=== PATIENT | female | born 1955 | race African-American/Black ===

== ENCOUNTER 2019-04-06 09:13 | Day surgery (SDC) | payer OTHER ==
--- OUTSIDE RECORDS SUMMARY | 2019-04-06 08:07 | XMS REPORT ---
:1955 [facility] Address [address] [place] [address] Dr. Robles. [address] [place] [address] Care Team Providers Name Role Phone Unavailable Unavailable Unavailable Problems This patient has no known problems. Allergies, Adverse Reactions, Alerts This patient has no known allergies or adverse reactions. Medications This patient has no known medications.
[2019-04-06 09:21] LABS: Absolute Lymphocytes (CBC) 1.1 K/uL (0.7-4.9); Absolute Monocytes 0.4 K/uL (0.1-1.3); Absolute Neutrophil 2.7 K/uL (1.8-8.0); Basophils % 0.8 % (0-1.3); Eosinophils % 1.5 % (0-4.4); Hematocrit 36.5 % (36.0-45.0); Lymphocytes % 26.3 % (15.3-44.8); MPV 8.1 fL (7.6-11.3); Monocytes % 9.3 % (3.3-12.3); RBC Red Blood Cell Count 4.24 M/uL (3.86-4.86)
--- NOTE | 2019-04-06 09:28 | RAD REPORT ---
EXAM DESCRIPTION: Ephraim Skaggs And Lana (2 Views)04/06/2019 9:15 am CLINICAL HISTORY: Breast abscess. Preop COMPARISON: None FINDINGS: The lungs appear clear of acute infiltrate. The heart is normal size Aorta is tortuous/ectatic IMPRESSION: No acute abnormalities displayed
[2019-04-06] MEDS ORDERED: Ringers Lactate 1,000 ML IV ONE (09:34)
[2019-04-06] MEDS ORDERED: CEFAZOLIN/SWI 1gm 1 GM/10 ML SYR ONE (09:34)
--- OUTSIDE RECORDS SUMMARY | 2019-04-06 09:34 | XMS REPORT ---
:1955 [facility] Address [address] [place] [address] Dr. Robles. [address] [place] [address] Care Team Providers Name Role Phone Unavailable Unavailable Unavailable Problems This patient has no known problems. Allergies, Adverse Reactions, Alerts This patient has no known allergies or adverse reactions. Medications This patient has no known medications.
[2019-04-06 09:40] LABS: Potassium 3.7 mmol/L (3.5-5.1)
[2019-04-06] MEDS ORDERED: FENTANYL CITR 100 MCG/2 ML ONE ×3 (10:15→11:21)
[2019-04-06] MEDS ORDERED: PROPOFOL 200 MG/20 ML VIAL IV ONE ×3 (10:16→11:21)
[2019-04-06] MEDS ORDERED: MIDAZOLAM HCL 2 MG/2 ML INJ ONE ×3 (10:16→11:21)
[2019-04-06] MEDS ORDERED: LIDOCAINE 1% MPF 2 ML AMPULE ONE (10:17)
[2019-04-06] MEDS: BUPIVACAINE 0.5% PF 10 ML VIAL ONE ×3 (10:25→11:37)
[2019-04-06] MEDS ORDERED: LIDOCAINE 2% MPF 5 ML VIAL ONE (11:08)
[2019-04-06] MEDS ORDERED: LIDOCAINE 1% MPF 5 ML VIAL ONE (11:21)
[2019-04-06] MEDS ORDERED: KETOROLAC 30 MG/ML INJ ONE (11:51)
[2019-04-06] MEDS ORDERED: ONDANSETRON 4 MG/2 ML VIAL ONE (11:52)
[2019-04-06] MEDS ORDERED: HYDROMORPHONE HCL 1 MG/ML INJ ONE (12:30)
--- NOTE | 2019-04-06 12:45 | EKG ---
Test Date: 2019-04-06 Test Time: 08:54:38 Windscreen Fitter: DANYEL MEASUREMENT RESULTS: Intervals: Rate: 56 UT: 166 QRSD: 92 QT: 406 QTc: 391 [place]: P: 44 UT: 166 QRS: 0 T: 36 INTERPRETIVE STATEMENTS: Sinus bradycardia Moderate voltage criteria for LVH, may be normal variant Borderline ECG Compared to ECG 05/20/2002 20:29:00 Left ventricular hypertrophy now present Sinus rhythm no longer present Atrial premature complex(es) no longer present Electronically Signed On 04-06-19 12:44:00 CDT by Fuentes Murcia
--- NOTE | 2019-04-07 00:32 | OP ---
Date of Procedure: 04/06/2019 Surgeon: Johnny Pringle MD Preoperative Diagnosis: Infected cyst, chest wall. Postoperative Diagnosis: Infected cyst, chest wall. Procedure: Excisional debridement of chest wall infected cyst, 4 x 6 cm to subcutaneous tissue. Estimated Blood Loss: Minimal. Specimen: Pus and cyst. Findings: As above. Anesthesia: General. Complications: None. Disposition: The patient tolerated the procedure in stable condition, taken to recovery in good gene ral condition. Procedure In Detail: The patient was brought to the OR and placed in supine position. General anest hesia was begun. The patient was prepped and draped in usual sterile fashion. The patient had an ab scess with infected cyst of the chest wall. It was injected with Marcaine 0.5%. A 15-blade was used to make approximately a 6 x 4 cm incision to excise this infected cyst that had multiple holes in th e skin. Minimal oozing was noted and this was done all the way down to the subcutaneous tissue. The entire wound was irrigated and bleeding was controlled with cautery. Wet-to-dry normal saline dress ing change was applied. The patient tolerated the procedure in stable condition, taken to recovery i n good general condition. Discharge Note: The patient will go to day surgery and home when stable. Disposition: Home. Condition: Stable. Discharge Instructions: Resume home medications and diet. Activity as tolerated. Wet-to-dry normal saline dressings daily. Keflex 500 mg p.o. q.6. Follow up in my office in 1 week. Call for appoin tment. Tylenol No. 3 one table p.o. q.4 p.r.n. /CARLITOL Voice ID: [id number] Report ID: [id number]
== END 2019-04-06 13:34 | disposition home or self-care (01) ==
LOC: OR 09:13
PROVIDERS: ATTEND Surgery
PROC: 0JB60ZZ Excision of Chest Subcutaneous Tissue and Fascia, Open Approach (ICD-10-PCS; principal; 2019-04-06 10:00)
DX: L02.213 Cutaneous abscess of chest wall (principal); L03.313 Cellulitis of chest wall; I10 Essential (primary) hypertension; Z79.899 Other long term (current) drug therapy
CPT/HCPCS: 36415; 71046; 80048; 85025; 87070; 87075; 87205; 88304; 88305; 93005; J0690; J1170; J2001; J2250; J2405; J2704; J3010

== ENCOUNTER 2024-09-30 00:57 | Observation (INO) | payer OTHER, MEDICARE ==
--- OUTSIDE RECORDS SUMMARY | 2024-09-30 01:01 | XMS REPORT | Continuity of Care Document ---
Author Name Unknown Address [address] [place] [address] [facility] thconnect Address [address] [place] [address] Care Team Providers Care Aerospace Project Engineer Name Role Phone [phone] Primary Care Physician UnavailADRIANA Cabrera Attending Clinician UnavailWERO Sarabia Attending Clinician Un available ERICK BURNS Attending Clinician Unavailable TIM FONTANEZ Attending Clinician UnavailYURI Hutton Attending Clinician UnavailLEXY Addison Attending Clinician Unavailable Eren Attending Clinician Unavail able Antony GUTIERRES, Sendil K.H. Attending Clinician + [phone] NATHAN GALAN Attending Clinician UnavailMARK Cormier Attending Clinician Unavailable Doctor Unassigned, [place] Attending Clinician U marek ALFARO, SENDELVIRA K.HAmy Attending Clinician UnavailRadames Wilson Attending Clinician UnavailCOLLIN Naik Attending Clinician Unavailable Jaycob Lugo DO Attending Clinician JEANIE AKIEN Attending Clinician UnavailADRIANA Mccloud Admitting Clinician UnavailYURI Clarke Admitting Clinician Unavailpearl Jason Admitting Clinician Unavail able Radames Thornton Admitting Clinician Unavailabl e Christiano Palmer Admitting Clinician Unavailable Payers Payer Name Policy Type Policy Number Effective Date Expirati on Date Source AET[employer] HMO [id number] 2002 00:00:00 MEDICARE PART A AND B [id number] 2022 00:00:00 AARP-SECONDARY ONLY [id number] 2022 00:00:00 AETNA - CHOICE (POS II) [id number] 2016 00:00:00 Problems Condition Name Condition Details Condition Category Status Onset Date Resolution Date Last Treatment Date Treating Clinician Comments Source Lumbar radiculopa thy Lumbar Radiculopa thy Problem Active 2021-11 00:00: 00 [facility] Pain of left knee joint Pain of Left Knee Joint Problem Active 2021-11 00:00: 00 [facility] 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 Problem Active 11-25 00:00: 00 [facility] Implantati on of joint prosthesis Implantati on of Joint Prosthesis Problem Active 11-25 00:00: 00 [facility] Full thickness rotator cuff tear Full Thickness Rotator Cuff Tear Problem Active 07-19 00:00: 00 [facility] Osteoarthr itis of knee Osteoarthr itis of Knee Problem Active 07-05 00:00: 00 [facility] Biceps tendinitis Biceps Tendinitis Problem Active 07-05 00:00: 00 [facility] Inflammati on of rotator cuff tendon Inflammati on of Rotator Cuff Tendon Problem Active 07-05 00:00: 00 [facility] Impingemen t syndrome of shoulder region Impingemen t Syndrome of Shoulder Region Problem Active 07-05 00:00: 00 [facility] Pain of left shoulder joint Pain of Left Shoulder Joint Problem Active 07-05 00:00: 00 [facility] 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 Problem Active 07-05 00:00: 00 [facility] Essential hypertensi on Essential hypertensi on Disease Recurre nce 01-18 00:00: 00 [facility] Total knee replacemen t Total Knee Replacemen t Problem Active 2014-11 00:00: 00 [facility] Plantar fasciitis Plantar Fasciitis Problem Active 2014-11 00:00: 00 [facility] Bunion Bunion Problem Active 2014-11 00:00: 00 [facility] Patellofem oral osteoarthr itis Patellofem oral Osteoarthr itis Problem Active 2014-11 00:00: 00 [facility] Allergies, Adverse Reactions, Alerts Allergy Name Allergy Type Status Severity Reaction(s) Onset Date Inactive Date Treating Clinician Comments Source No Known Allergie s DA Active U 2020-11 00:00: 00 [facility] No Known Allergie s DA Active U 02-22 00:00: 00 [facility] Social History Social Habit Start Date Stop Date Quantity Comments Source Sexual orientation U [facility] History of Social function 2020-12-12 00:00:00 2020-12-12 00:00:00 [facility] Tobacco use and exposure 2018-01-18 00:00:00 2018-01-18 00:00:00 Smokeless tobacco non-user [facility] Sex Assigned At 1955 00:00:00 1955 00:00:00 [facility] Smoking Status Start Date Stop Date Source Never Smoker [facility] Medications Ordered Medication Name Filled Medication Name Start Date Stop Date Current Medication? Ordering Clinician Indication Dosage Frequency Signature (SIG) Comments Components Source atorvastati n 10 mg tablet atorvastati n 10 mg tablet 07-05 00:00: 00 No atorvastat in 10 mg tablet [facility] promethazin e 12.5 mg tablet one taken by mouth every 6 hours as needed for nausea promethazin e 12.5 mg tablet one taken by mouth every 6 hours as needed for nausea 2014-11 00:00: 00 No promethazi ne 12.5 mg tablet one taken by mouth every 6 hours as needed for nausea [facility] Keflex 500 mg capsule ONE TAKEN BY MOUTH FOUR TIMES A DAY Keflex 500 mg capsule ONE TAKEN BY MOUTH FOUR TIMES A DAY 2014-11 00:00: 00 No Keflex 500 mg capsule ONE TAKEN BY MOUTH FOUR TIMES A DAY [facility] aspirin 81 mg tablet,piero yed release TAKE 1 TABLET BY MOUTH TWICE A DAY aspirin 81 mg tablet,piero yed release TAKE 1 TABLET BY MOUTH TWICE A DAY No aspirin 81 mg tablet,del ayed release TAKE 1 TABLET BY MOUTH TWICE A DAY [facility] atorvastati n 20 mg tablet TAKE ONE (1) TABLET(S) BY MOUTH DAILY. atorvastati n 20 mg tablet TAKE ONE (1) TABLET(S) BY MOUTH DAILY. No atorvastat in 20 mg tablet TAKE ONE (1) TABLET(S) BY MOUTH DAILY. [facility] cefadroxil 500 mg capsule cefadroxil 500 mg capsule No cefadroxil 500 mg capsule [facility] doxycycline hyclate 100 mg capsule TAKE 1 CAPSULE BY MOUTH TWICE A DAY TWICE DAILY FOR ONE WEEK doxycycline hyclate 100 mg capsule TAKE 1 CAPSULE BY MOUTH TWICE A DAY TWICE DAILY FOR ONE WEEK No doxycyclin e hyclate 100 mg capsule TAKE 1 CAPSULE BY MOUTH TWICE A DAY TWICE DAILY FOR ONE WEEK [facility] hydrocodone 10 mg-acetamin ophen 325 mg tablet TAKE 1 TABLET BY MOUTH EVERY SIX HOURS NEEDED FOR PAIN SEVERE BREAKTHROUG H PAIN hydrocodone 10 mg-acetamin ophen 325 mg tablet TAKE 1 TABLET BY MOUTH EVERY SIX HOURS NEEDED FOR PAIN SEVERE BREAKTHROUG H PAIN No hydrocodon e 10 mg-acetami nophen 325 mg tablet TAKE 1 TABLET BY MOUTH EVERY SIX HOURS NEEDED FOR PAIN SEVERE BREAKTHROU GH PAIN [facility] Hyzaar 50 mg-12.5 mg tablet RX by other Hywilfredoar 50 mg-12.5 mg tablet RX by other No Hyzaar 50 mg-12.5 mg tablet RX by other [facility] meloxicam 15 mg tablet TAKE 1 TABLET BY MOUTH ONCE A DAY ONE TAB ONCE DAILY FOR INFLAMMATIO N meloxicam 15 mg tablet TAKE 1 TABLET BY MOUTH ONCE A DAY ONE TAB ONCE DAILY FOR INFLAMMATIO N No meloxicam 15 mg tablet TAKE 1 TABLET BY MOUTH ONCE A DAY ONE TAB ONCE DAILY FOR INFLAMMATI ON [facility] mupirocin 2 % topical ointment mupirocin 2 % topical ointment No mupirocin 2 % topical ointment [facility] olmesartan 20 mg tablet TAKE 1 TABLET (20 MG TOTAL) BY MOUTH 1 (ONE) TIME EACH DAY FOR 7 DAYS. olmesartan 20 mg tablet TAKE 1 TABLET (20 MG TOTAL) BY MOUTH 1 (ONE) TIME EACH DAY FOR 7 DAYS. No olmesartan 20 mg tablet TAKE 1 TABLET (20 MG TOTAL) BY MOUTH 1 (ONE) TIME EACH DAY FOR 7 DAYS. [facility] olmesartan 20 mg-hydrochl orothiazide 12.5 mg tablet olmesartan 20 mg-hydrochl orothiazide 12.5 mg tablet No olmesartan 20 mg-hydroch lorothiazi de 12.5 mg tablet [facility] QuickVue At-Home COVID-19 Test kit QuickVue At-Home COVID-19 Test kit No QuickVue At-Home COVID-19 Test kit [facility] tramadol 50 mg tablet TAKE 1 TABLET BY MOUTH EVERY SIX HOURS ALTERNATE BETWEEN HYDROCODONE tramadol 50 mg tablet TAKE 1 TABLET BY MOUTH EVERY SIX HOURS ALTERNATE BETWEEN HYDROCODONE No tramadol 50 mg tablet TAKE 1 TABLET BY MOUTH EVERY SIX HOURS ALTERNATE BETWEEN HYDROCODON E [facility] Wegovy 2.4 mg/0.75 mL subcutaneou s pen injector Wegovy 2.4 mg/0.75 mL subcutaneou s pen injector No Wegovy 2.4 mg/0.75 mL subcutaneo us pen injector [facility] zolpidem 10 mg tablet TAKE 1 TABLET BY MOUTH AT NIGHT IF NEEDED FOR SLEEP. zolpidem 10 mg tablet TAKE 1 TABLET BY MOUTH AT NIGHT IF NEEDED FOR SLEEP. No zolpidem 10 mg tablet TAKE 1 TABLET BY MOUTH AT NIGHT IF NEEDED FOR SLEEP. [facility] zolpidem ER 12.5 mg tablet,exte nded release,mul tiphase TAKE 1 TABLET (12.5 MG TOTAL) BY MOUTH AT NIGHT IF NEEDED FOR SLEEP. DO NOT CRUSH, CHEW, OR SPLIT. zolpidem ER 12.5 mg tablet,exte nded release,mul tiphase TAKE 1 TABLET (12.5 MG TOTAL) BY MOUTH AT NIGHT IF NEEDED FOR SLEEP. DO NOT CRUSH, CHEW, OR SPLIT. No zolpidem ER 12.5 mg tablet,ext ended release,mu ltiphase TAKE 1 TABLET (12.5 MG TOTAL) BY MOUTH AT NIGHT IF NEEDED FOR SLEEP. DO NOT CRUSH, CHEW, OR SPLIT. [facility] amlodipine 5 mg tablet TAKE ONE (1) TABLET(S) BY MOUTH DAILY. amlodipine 5 mg tablet TAKE ONE (1) TABLET(S) BY MOUTH DAILY. No amlodipine 5 mg tablet TAKE ONE (1) TABLET(S) BY MOUTH DAILY. [facility] Celebrex 200 mg capsule Take 1 capsule every day by oral route with meal(s) for 30 days. Celebrex 200 mg capsule Take 1 capsule every day by oral route with meal(s) for 30 days. No 1capsul e(s) Q1D Celebrex 200 mg capsule Take 1 capsule every day by oral route with meal(s) for 30 days. [facility] doxycycline hyclate 100 mg tablet TAKE ONE (1) TABLET(S) BY MOUTH ONCE A DAY AFTER MEALS. doxycycline hyclate 100 mg tablet TAKE ONE (1) TABLET(S) BY MOUTH ONCE A DAY AFTER MEALS. No doxycyclin e hyclate 100 mg tablet TAKE ONE (1) TABLET(S) BY MOUTH ONCE A DAY AFTER MEALS. [facility] fluocinolon e 0.01 % scalp oil and shower cap APPLY TO AFFECTED AREA ON THE SCALP ONCE DAILY. fluocinolon e 0.01 % scalp oil and shower cap APPLY TO AFFECTED AREA ON THE SCALP ONCE DAILY. No fluocinolo ne 0.01 % scalp oil and shower cap APPLY TO AFFECTED AREA ON THE SCALP ONCE DAILY. [facility] furosemide 20 mg tablet TAKE ONE (1) TABLET(S) BY MOUTH ONCE A DAY. furosemide 20 mg tablet TAKE ONE (1) TABLET(S) BY MOUTH ONCE A DAY. No furosemide 20 mg tablet TAKE ONE (1) TABLET(S) BY MOUTH ONCE A DAY. [facility] minoxidil 2.5 mg tablet TAKE 1/2 TABLET BY MOUTH ONCE A DAY. minoxidil 2.5 mg tablet TAKE 1/2 TABLET BY MOUTH ONCE A DAY. No minoxidil 2.5 mg tablet TAKE 1/2 TABLET BY MOUTH ONCE A DAY. [facility] olmesartan 40 mg tablet TAKE ONE (1) TABLET(S) BY MOUTH DAILY. olmesartan 40 mg tablet TAKE ONE (1) TABLET(S) BY MOUTH DAILY. No olmesartan 40 mg tablet TAKE ONE (1) TABLET(S) BY MOUTH DAILY. [facility] trazodone 100 mg tablet TAKE ONE (1) TABLET(S) BY MOUTH AT BEDTIME. trazodone 100 mg tablet TAKE ONE (1) TABLET(S) BY MOUTH AT BEDTIME. No trazodone 100 mg tablet TAKE ONE (1) TABLET(S) BY MOUTH AT BEDTIME. [facility] zolpidem 5 mg tablet TAKE ONE (1) TABLET(S) BY MOUTH DAILY AT BEDTIME. zolpidem 5 mg tablet TAKE ONE (1) TABLET(S) BY MOUTH DAILY AT BEDTIME. No zolpidem 5 mg tablet TAKE ONE (1) TABLET(S) BY MOUTH DAILY AT BEDTIME. [facility] zolpidem ER 6.25 mg tablet,exte nded release,mul tiphase TAKE ONE (1) TABLET(S) BY MOUTH AT BEDTIME NEEDED FOR SLEEP. zolpidem ER 6.25 mg tablet,exte nded release,mul tiphase TAKE ONE (1) TABLET(S) BY MOUTH AT BEDTIME NEEDED FOR SLEEP. No zolpidem ER 6.25 mg tablet,ext ended release,mu ltiphase TAKE ONE (1) TABLET(S) BY MOUTH AT BEDTIME NEEDED FOR SLEEP. [facility] Immunizations Ordered Immunization Name Filled Immunization Name Date Status Comments Source SARS-COV-2 COVID-19 PFIZER VACCINE 2021-03-07 00:00:00 Completed [facility] SARS-COV-2 COVID-19 PFIZER VACCINE 2021-03-07 00:00:00 Completed [facility] SARS-COV-2 COVID-19 PFIZER VACCINE 2021-02-14 00:00:00 Completed [facility] SARS-COV-2 COVID-19 PFIZER VACCINE 2021-02-14 00:00:00 Completed [facility] Zoster Vaccine Recombinant 2020-11-07 00:00:00 Completed [facility] TDAP 2020-11-07 00:00:00 Completed [facility] Zoster Vaccine Recombinant 2020-11-07 00:00:00 Completed [facility] TDAP 2020-11-07 00:00:00 Completed [facility] Influenza Virus Vaccine Quad IM 3+ YRS 2020-08-06 00:00:00 Completed [facility] Influenza Virus Vaccine Quad IM 3+ YRS 2020-08-06 00:00:00 Completed [facility] Influenza Virus Vaccine Quad IM 3+ YRS Unknown Completed [facility] Zoster Vaccine Recombinant Unknown Completed [facility] TDAP Unknown Completed [facility] SARS-COV-2 COVID-19 PFIZER VACCINE Unknown Completed [facility] pneumococcal conjugate PCV 7 pneumococcal conjugate PCV 7 Unknown Completed [facility] Vital Signs Vital Name Observation Time Observation Value Comments S ource BMI (Body Mass Index) 2024-06-23 00:00:00 37.1 kg/m2 [facility] Body Weight 2024-06-23 00:00:00 236.6 [lb_av] [facility] Height 2024-06-23 00:00:00 67 [in_i] Johnathanle a [facility] BP Diastolic 2022-11-10 00:00:00 60 mm[Hg] Johnathan hernandez [facility] Height 2022-11-10 00:00:00 67 [in_i] Azale [facility] BMI (Body Mass Index) 2022-11-10 00:00:00 34.3 kg/m2 [facility] BP Systolic 2022-11-10 00:00:00 96 mm[Hg] Azal e[facility] Body Weight 2022-11-10 00:00:00 219 [lb_av] Aza david [facility] Height 2022-10-21 00:00:00 67 [in_i] [facility] BMI (Body Mass Index) 2022-10-21 00:00:00 36.8 kg/m2 [facility] Body Weight 2022-10-21 00:00:00 235 [lb_av] [facility] Procedures Procedure Date / Time Performed Performing Clinician Source XR, knee, 3 view 2024-06-23 00:00:00 Azadiana e[facility] XR, knee, 3 view 2022-10-21 00:00:00 Juancho ea [facility] [id number] 2021-11-03 00:00:00 [email or web address] [facility] Total Knee Arthroplasty 2021-11-03 00:00:00 [facility] Encounters Start Date/Time End Date/Time Encounter Type Admission Type Attending Clinicians Care Facility Care Department Encounter ID Source 2022-03-02 14:59:31 Outpatient ADRIANA MURILLO [facility] [id number] MD Rahel johnson 2021-12-25 17:49:37 Outpatient MED JOVEL [id number] MD Rahel johnson 2024-06-23 00:00:00 2024-06-23 00:00:00 Radames Thornton MD: [address] [place] [address] , Ph. [phone] [facility] [place] [facility] [id number] [facility] 2024-04-10 11:15:00 2024-04-10 23:59:00 Outpatient EL MED JOVEL [id number] MD Rahel johnson 2024-04-10 13:32:34 2024-04-10 14:18:25 Outpatient EL WERO MULLINS MDA, MDA [id number] MD Rahel johnson 2024-04-10 00:00:00 2024-04-10 00:00:00 Outpatient JOANIE HARKINSN MDA MDA [id number] MD Rahel johnson 2023-09-07 13:11:05 2023-09-07 15:08:16 Outpatient MOHIT ALCANTARAYVONNEEVERETTTIM MDA MDA [id number] MD Rahel johnson 2023-09-07 13:11:05 2023-09-07 13:11:05 Outpatient MOHIT FONTANEZ TIM MDA MDA [id number] MD Rahel johnson 2023-02-11 09:04:32 2023-02-11 09:54:56 Outpatient JOYCE NEWTONORY MDA MDA [id number] MD Rahel johnson 2023-02-03 06:03:00 2023-02-04 10:05:00 Outpatient MOHIT ADALI YURI [facility] Plastic Surg [id number] MD Rahel johnson 2023-02-02 09:45:00 2023-02-02 23:59:00 Outpatient [facility]OHIT FONTANEZ [id number] [facility] 2023-02-02 08:32:07 2023-02-02 09:41:50 Outpatient JOYCE NEWTONORY MDA MDA [id number] MD Rahel johnson 2023-02-02 07:46:06 2023-02-02 07:46:06 Outpatient EVERETT GUADARRAMAYSTAL MDA MDA [id number] MD Rahel johnson 2023-01-30 15:24:01 2023-01-30 15:30:08 Outpatient TIM GUADARRAMA MDA MDA [id number] MD Rahel johnson 2023-01-05 08:56:17 2023-01-05 09:36:41 Outpatient JOYCE NEWTONORY MDA MDA [id number] MD Rahel johnson 2022-12-11 09:32:54 2022-12-11 23:59:00 Outpatient LEXY ROMAN MDA MDA [id number] MD Rahel johnson 2022-12-11 07:43:31 2022-12-11 09:31:00 Outpatient DAY ROMANIN MDA MDA [id number] MD Rahel johnson 2022-11-10 00:00:00 2022-11-10 00:00:00 Outpatient FOG_Norberto _Clara_ [facility] [id number] [facility] 2022-11-10 00:00:00 2022-11-10 00:00:00 Asher Curry MD: [address] [place], [place] [id number] , Ph. [phone] [place] [facility] [place] [facility] [id number] [facility] 2022-11-03 00:00:00 2022-11-03 00:00:00 Outpatient FOG_Norberto _Clara_ [facility] [id number] [facility] 2022-10-21 00:00:00 2022-10-21 00:00:00 Outpatient FOG_Norberto _Leena [facility] [id number] [facility] 2022-10-21 00:00:00 2022-10-21 00:00:00 Radames Thornton MD: [address] [place] [id number] , Ph. [phone] [facility] [place] [facility] [id number] [facility] 2022-09-01 12:54:17 2022-09-01 14:04:57 Outpatient YURI NEWTON MDA, MDA [id number] MD Rahel johnson 2022-08-03 00:00:00 2022-08-03 00:00:00 Outpatient FOG_Norberto Vasquez [facility] [id number] [facility] 2022-06-02 11:53:53 2022-06-02 23:59:00 Outpatient LEXY ROMAN MDA, MDA [id number] MD Rahel johnson 2022-06-01 12:37:29 2022-06-01 23:59:00 Outpatient LEXY ROMAN MDA, MDA [id number] MD Rahel johnson 2022-05-29 13:20:00 2022-05-29 23:59:00 Outpatient EL NEAD, LEXY MDA MDA [id number] [facility] elizabeth 2022-05-29 13:04:34 2022-05-29 13:19:00 Outpatient EL NEAD, LEXY MDA MDA [id number] [facility] elizabeth 2022-05-28 12:04:08 2022-05-28 23:59:00 Outpatient EL NEAD, LEXY MDA MDA [id number] [facility] elizabeth 2022-05-27 12:20:04 2022-05-27 23:59:00 Outpatient EL NEAD, LEXY MDA MDA [id number] [facility] elizabeth 2022-05-26 12:01:17 2022-05-26 23:59:00 Outpatient EL NEAD, LEXY MDA MDA [id number] [facility] elizabeth 2022-05-22 12:41:56 2022-05-22 23:59:00 Outpatient EL NEAD, LEXY MDA MDA [id number] [facility] 2022-05-22 12:05:30 2022-05-22 12:40:00 Outpatient EL NEAD, LEXY MDA MDA [id number] [facility] 2022-05-21 12:26:16 2022-05-21 23:59:00 Outpatient EL NEAD, LEXY MDA MDA [id number] [facility] 2022-05-20 11:32:50 2022-05-20 23:59:00 Outpatient EL NEAD, LEXY MDA MDA [id number] [facility] 2022-05-19 11:08:58 2022-05-19 23:59:00 Outpatient EL NEAD, LEXY MDA MDA [id number] [facility] elizabeth 2022-05-18 11:20:07 2022-05-18 23:59:00 Outpatient EL NEAD, LEXY MDA MDA [id number] [facility] elizabeth 2022-05-15 12:24:19 2022-05-15 23:59:00 Outpatient EL NEAD, LEXY MDA MDA [id number] [facility] elizabeth 2022-05-15 12:07:33 2022-05-15 12:23:00 Outpatient EL NEAD, LEXY MDA MDA [id number] [facility] elizabeth 2022-05-14 12:27:01 2022-05-14 23:59:00 Outpatient EL NEADLEXY MDA MDA [id number] MD Rahel johnson 2022-05-13 12:02:18 2022-05-13 23:59:00 Outpatient EL NEADLEXY MDA MDA [id number] MD Rahel johnson 2022-05-12 11:13:40 2022-05-12 23:59:00 Outpatient EL NEADLEXY MDA MDA [id number] MD Rahel johnson 2022-04-13 00:00:00 2022-04-13 00:00:00 Telephone Trinh Alfaro [facility] [id number] [id number] [id number] [facility] 2022-03-11 00:00:00 2022-03-11 00:00:00 Patient Secure Msg Antony Sendelvira [facility] [id number] 350.1.13.10 [id number] [id number] [facility] 2022-03-10 00:00:00 2022-03-10 00:00:00 Patient Secure Msg Antony Sendil [facility] [id number] 350.1.13.10 [id number] [id number] [facility] 2022-02-24 14:05:19 2022-02-24 23:59:00 Outpatient EL GALANNATHAN MDA MDA [id number] MD Rahel johnson 2022-02-24 14:54:20 2022-02-24 15:06:19 Outpatient EL GALANNATHAN GRIFFIN MDA MDA [id number] MD Rahel johnson 2022-02-24 14:28:35 2022-02-24 14:28:35 Outpatient EL GALANNATHAN GRIFFIN MDA MDA [id number] MD Rahel johnson 2022-02-24 11:59:41 2022-02-24 14:00:25 Outpatient ADRIANA AGUILAR MDA MDA [id number] MD Rahel johnson 2022-02-24 09:52:03 2022-02-24 09:52:03 Outpatient MARK NAVA MDA MDA [id number] MD Rahel johnson 2022-02-05 10:17:08 2022-02-05 10:17:08 Outpatient EL MDA MDA [id number] MD Rahel johnson 2022-02-05 08:47:37 2022-02-05 08:47:37 Outpatient MARK NAVA MDA MDA [id number] MD Rahel johnson 2022-02-05 07:43:09 2022-02-05 07:43:09 Outpatient MARK NAVA MDA MDA [id number] MD Rahel johnson 2022-02-04 00:00:00 2022-02-04 00:00:00 Orders Only Doctor Unassigned, [place] [facility] [id number] 350.1.13.10 [id number] [id number] [facility] 2022-01-29 11:57:47 2022-01-29 11:57:47 Outpatient MARK NAVA MDA MDA [id number] MD Rahel johnson 2022-01-26 14:28:46 2022-01-26 15:34:11 Outpatient MARK NAVA MDA MDA [id number] MD Rahel johnson 2022-01-20 00:00:00 2022-01-20 00:00:00 Patient Secure [facility] [address]840.114 350.1.13.10 [id number] [id number] [facility] 2022-01-20 00:00:00 2022-01-20 00:00:00 Patient Secure Msg [facility] [id number] 350.1.13.10 [id number] [id number] [facility] 2022-01-20 00:00:00 2022-01-20 00:00:00 Patient Secure Msg Trinh Alfaro [facility] [id number] 350.1.13.10 [id number] [id number] [facility] 2021-12-12 11:00:00 2021-12-12 11:00:00 Outpatient R TRINH ALFARO [facility] [id number] [facility] 2021-12-05 11:00:00 2021-12-05 11:00:00 Outpatient R [facility] [id number] [facility] 2021-11-26 00:00:00 2021-11-26 00:00:00 Orders Only Doctor Unassigned, [place] [facility] [id number] 350.1.13.10 [id number] [id number] [facility] 2021-11-21 15:00:00 2021-11-21 16:27:32 Outpatient R TRINH ALFARO [facility] [id number] [facility] 2021-11-21 15:00:00 2021-11-21 15:30:00 Office Visit Trinh Alfaro [facility] [id number] 350.1.13.10 [id number] [id number] [facility] 2021-11-21 15:00:00 2021-11-21 15:00:00 Outpatient R TRINH ALFARO [facility] [id number] [facility] 2021-11-10 11:30:00 2021-11-10 11:30:00 Outpatient R CEE ALFAROIL [facility] [id number] [facility] 2021-11-10 11:30:00 2021-11-10 11:30:00 Outpatient TRINH REID [facility] [id number] [facility] 2021-11-03 06:47:00 2021-11-04 13:56:00 Inpatient Radames Son [facility]AT[facility] ADMI [id number] [facility] 2021-11-03 06:47:00 2021-11-04 13:56:00 Inpatient Radames SonTO ADMI [id number] [facility] 2021-10-28 15:25:00 2021-10-28 15:25:00 [id number] 2021-10-28 15:01:00 2021-10-28 15:01:00 Outpatient Radames Thornton HCACL LABO [id number] [facility] 2021-10-28 08:00:00 2021-10-28 08:00:00 Inpatient Radames SonTO ADMI [id number] [facility] 2021-09-12 00:00:00 2021-09-12 00:00:00 Trinh Soares [facility] 1.2.840.114 350.1.13.10 4.2.7.2.686 [id number] [facility] 2021-03-07 15:40:00 2021-03-07 15:40:00 Outpatient COLLIN YOUSSEF [facility] [id number] [facility] 2021-02-14 15:40:00 2021-02-14 15:40:00 Outpatient [facility] [id number] [facility] 2021-01-29 00:00:00 2021-01-29 00:00:00 Patient Outreach Jaycob Lugoan [facility] 1.2840.114 350.1.13.10 4.2.7.2.686 [id number] [facility] 2021-01-01 00:00:00 2021-01-01 00:00:00 Refill Trinh Alfaro [facility] 1.2840.114 350.1.13.10 4.2.7.2.686 [id number] [facility] 2020-12-13 12:00:00 2020-12-13 12:00:00 Outpatient [facility] [id number] [facility] 2020-12-12 12:53:15 2020-12-12 13:34:26 Office Visit Trinh Alfaro [facility] 1.2840.114 350.1.13.10 4.2.7.2.686 [id number] [facility] 2020-12-12 13:00:00 2020-12-12 13:00:00 Outpatient TRINH REID [facility] [id number] [facility] 2020-12-12 00:00:00 2020-12-12 00:00:00 Orders Only Doctor Unassigned, [place] [facility] 1.2840.114 350.1.13.10 4.2.7.2.686 [id number] [facility] 2020-11-12 00:00:00 2020-11-12 00:00:00 Refill Trinh Alfaro [facility] 1.2.840.114 350.1.13.10 4.2.7.2.686 [id number] [facility] 2020-11-12 00:00:00 2020-11-12 00:00:00 Refill Trinh Alfaro [facility] 1.2.840.114 350.1.13.10 4.2.7.2.686 [id number] [facility] 2020-11-11 00:00:00 2020-11-11 00:00:00 Telephone Trinh Alfaro [facility] 1.2.840.114 350.1.13.10 4.2.7.2.686 [id number] [facility] 2020-02-22 00:00:00 2020-02-22 00:00:00 Refill Trinh Alfaro [facility] 1.2.840.114 350.1.13.10 4.2.7.2.686 [id number] [facility] 2020-01-22 00:00:00 2020-01-22 00:00:00 Refill Trinh Alfaro [facility] 1.2.840.114 350.1.13.10 4.2.7.2.686 [id number] [facility] 2020-01-11 00:00:00 2020-01-11 00:00:00 Orders Only Doctor Unassigned, [place] [facility] 1.2.840.114 350.1.13.10 4.2.7.2.686 [id number] [facility] 2020-01-07 00:00:00 2020-01-07 00:00:00 Patient Secure Msg Trinh Alfaro [facility] 1.2.840.114 350.1.13.10 4.2.7.2.686 [id number] [facility] 2019-12-29 00:00:00 2019-12-29 00:00:00 Telephone Trinh Alfaro [facility] 1.2.840.114 350.1.13.10 4.2.7.2.686 [id number] [facility] 2019-12-12 12:45:37 2019-12-12 13:49:46 Office Visit Trinh Alfaro [facility] 1.2.840.114 350.1.13.10 4.2.7.2.686 [id number] [facility] Results Test Description Test Time Test Comments Results Result Co mments Source SPECIMEN COMMENT: POD #1Novel Coronavirus 2018 [id number] 08:26:00* Test Item Value Reference Range Interpretation Comme nts Novel Coronavirus 2018 Inhouse (test code = COVNONPUI) Negative Negative Positive resul ts are indicative of the presence teBXXA-IaN-3 RNA, clinical correlation with patient historyand other diagnostic information is necessary to determinepatient infection status. Positive results do not rule outbacterial infection or co-infection with other viruses. Negative results do not preclude SARS-CoV-2 infection andshould not be used as the sole basis for patient managementdecisions. Negative results must be combined with otherclinical observations, patient history, and epidemiologicalinformation . Detection of SARS-CoV-2 RNA may be affected bysample collection methods, storage conditions, and/or stageof infection. Viral RNA mutations, vaccinations, antiviraltherapeutics, antibiotics, chemotherapeutic orimmunosuppressant drugs have not been evaluated for effectson detection. Results are for the identification of SARS-CoV-2 RNA usingthe Perez M2000 System under the FDA Emergency UseAuthorization. The testing is performed by personneltrained in the procedures for the Perez M2000 moleculardiagnostic SARS-CoV-2 assay in vitro. Novel Coronavirus 2018 [id number] 08:26:00* Test Item Value Reference Range Interpretation Comme nts Novel Coronavirus 2018 Inhouse (test code = COVNONPUI) Negative Negative Positive resul ts are indicative of the presence xtDKHK-SeH-5 RNA, clinical correlation with patient historyand other diagnostic information is necessary to determinepatient infection status. Positive results do not rule outbacterial infection or co-infection with other viruses. Negative results do not preclude SARS-CoV-2 infection andshould not be used as the sole basis for patient managementdecisions. Negative results must be combined with otherclinical observations, patient history, and epidemiologicalinformation . Detection of SARS-CoV-2 RNA may be affected bysample collection methods, storage conditions, and/or stageof infection. Viral RNA mutations, vaccinations, antiviraltherapeutics, antibiotics, chemotherapeutic orimmunosuppressant drugs have not been evaluated for effectson detection. Results are for the identification of SARS-CoV-2 RNA usingthe [employer] M2000 System under the FDA Emergency UseAuthorization. The testing is performed by personneltrained in the procedures for the Perez M2000 moleculardiagnostic SARS-CoV-2 assay in vitro. AB HIV 1 17:59:00* Test Item Value Reference Range Interpretation Comme nts AB HIV 1 2 (test code = MEB16AC) NONREACTIVE NONREACTIVE Done by [employer] 4[employer] Gen HIV Ag/Ab Combo Screen AB HIV 17:59:00* Test Item Value Reference Range Interpretation Comme nts AB HIV 1 (test code = HIV1AB) NONREACTIVE NONREACTIVE DONE AT: [address] [id number] by [employer] 4th Gen HIV Ag/Ab Combo Screen PROTHROMBIN [id number] 13:10:00* Test Item Value Reference Range Interpretation Comme nts PROTHROMBIN TIME PATIENT (test code = PTP) 12.5 secs 10.1-12.5 N INTERNATIONAL NORMAL RATIO (test code = INR) 1.10 <2.0 RECOMMENDED THER APEUTIC RANGE FOR ORAL ANTICOAGULANTTREATMENT: CONDITION INRProphylaxis of venous thrombosis in 2.0 - 3.0 high-risk medical or surgical patientsTreatment of venous thrombosis 2.0 - 3.0Prevention of embolism 2.0 - 3.0Prevention of recurrent embolism, or 3.0 - 4.5 patients with mechanical prosthetic intravascular valves IS PATIENT ON ANTICOAGULANTS ? HIas Lab been notified if Patient is on Heparin Drip? NOTHROMBOPLASTIN TIME [id number] 13:10:00* Test Item Value Reference Range Interpretation Comme nts PTT ACTIVATED (test code = APTT) 35.9 secs 24.9-37.0 N IS PATIENT ON ANTICOAGULANTS ? NHas Lab been notified if Patient is on Heparin Drip? NOCOMPREHENSIVE METABOLIC [id number] 13:02:00* Test Item Value Reference Range Interpretation Comme nts SODIUM (test code = NA) 143 mmol/L 136-145 N POTASSIUM (test code = K) 4.8 mmol/L 3.5-5.1 N CHLORIDE (test code = CL) 107.0 mmol/L 98-107 N CARBON DIOXIDE (test code = CO2) 25.9 mmol/L 21-32 N GLUCOSE (test code = GLU) 91 mg/dL 70-110 N BLOOD UREA NITROGEN (test code = BUN) 26 mg/dL 7-18 H GLOMERULAR FILTRATION RATE (test code = GFR) 39.5 >60 Unit of m easure: mL/min/1.73 f0Mmjllmixt Range:Healthy Adults >90 mL/min/1.73 m2 For Chronic Kidney Disease: Stage II Mild Decrease in GFR 60-90 Stage III Moderate Decrease in GFR 30-59 Stage IV Severe Decrease in GFR 15-29 Stage V Kidney Failure <15 CREATININE (test code = CREAT) 1.60 mg/dL 0.55-1.30 H TOTAL PROTEIN (test code = PROT) 7.8 g/dL 6.4-8.2 N ALBUMIN (test code = ALB) 3.6 g/dL 3.4-5.0 N GLOBULIN (test code = GLOB) 4.2 g/dL 2.2-4.2 N ALBUMIN/GLOBULIN RATIO (test code = A/G) 0.9 0.7-2.0 N CALCIUM (test code = CA) 9.7 mg/dL 8.2-10.1 N BILIRUBIN TOTAL (test code = BILT) 0.40 mg/dL 0.2-1.00 N SGOT/AST (test code = AST) 16.0 U/L 15-37 N SGPT/ALT (test code = ALT) 24.0 U/L 12-78 N Please note new normal range. ALKALINE PHOSPHATASE TOTAL (test code = ALKP) 87 U/L 46-116 N CBC W/AUTO [id number] 11:57:00* Test Item Value Reference Range Interpretation Comme nts WHITE BLOOD CELL (test code = WBC) 5.3 K/mm3 5.8-11.0 L RED BLOOD CELL (test code = RBC) 3.75 M/mm3 4.2-5.4 L HEMOGLOBIN (test code = HGB) 10.3 g/dL 12-16 L HEMATOCRIT (test code = HCT) 33.0 % 37-47 L MEAN CELL VOLUME (test code = MCV) 88 fL 80-98 N MEAN CELL HGB (test code = MCH) 27.5 pg 27-34 N MEAN CELL HGB CONCENTRATION (test code = MCHC) 31.2 g/dL 30.8-34.1 N RED CELL DISTRIBUTION WIDTH (test code = RDW) 13.9 % 11-16 N PLT (test code = PLT) 313 K/mm3 130-400 N MEAN PLATELET VOLUME (test c ode = MPV) 10.9 fL 8.9-12.1 N NEUTROPHIL % (test code = NT%) 66.5 % 45-70 N LYMPHOCYTE % (test code = LY%) 24.0 % 20-40 N MONOCYTE % (test code = MO%) 7.9 % 3-10 N EOSINOPHIL % (test code = EO%) 0.8 % 1-5 L BASOPHIL % (test code = BA%) 0.6 % 0.0-1.1 N NEUTROPHIL # (test code = NT#) 3.52 K/mm3 2.00-7.50 N LYMPHOCYTE # (test code = LY#) 1.27 K/mm3 1.50-4.00 L MONOCYTE # (test code = MO#) 0.42 K/mm3 0.2-0.8 N EOSINOPHIL # (test code = EO#) 0.04 K/mm3 0.04-0.4 N BASOPHIL # (test code = BA#) 0.03 K/mm3 0.02-0.10 N MANUAL DIFF REQUIRED (test c ode = MDIFF) NO MANUAL DIFF NUCLEATED RED BLOOD CELL (te st code = NRBC) 0 % 0-0 N - MRI UP T W/O CONT [id number] 11:04:00Patient Name: NICOLE BE Unit No: [id number] EXAMS: CPT CODE: [id number] MRI [place] JNT W/[place] [address] MRI OF THE LEFT SHOULDER DIAGNOSIS: 1. Full-thickness tear of the supraspinatus and infraspinatus tendons with 2.5 cm of retraction. The combined tear measures 1.7 cm. It is associated tendinosis is is moderate fatty atrophy of the infraspinatus tendon and moderate volume loss in the supraspinatus muscle with mild fatty atrophy. 2. Subchondral edema in the glenoid with cartilage thinning without a focal defect. 3. Proximal biceps tendinosis and superior subscapularis tendinosis without evidence for tear or retraction. No muscular atrophy is seen. COMMENT: COMPARISON: No prior exams available. Scans were performed in the paracoronal, parasagittal and axial planes utilizing T1 , spin density with fat saturation and T2-weighting with and without fat saturation. The rotator cuff i s as described. The acromion is horizontal with AC joint degenerative change. There is no evidence for labral tear. Glenohumeral joint degenerative changes present as noted. Joint and bursal effusions are seen. at 1104 Reportedand signed by: Jacob Gill MD CC: Lemuel Gonzalez MD; Christiano Palmer MD Technologist: Carlos A Luz(R) Transcribed D/ (1104) [facility] NAME: NICOLE BE [address] [facility] PHYS: Lemuel Bethea MD : 1955 AGE: 63 SEX:F [place], [place] [address] LOC: Y.MRI PHONE #: [phone] EXAM DATE: 07/19/2019 STATUS: REG CLI FAX #: [phone] RAD #: D/C DT PAGE 1 Signed Report Patient Name: NICOLE BE Unit No: [id number] EXAMS: CPT CODE: [id number] [place] JNT W/[place] [address] (Continued) Orig Print D/T: S: 07/19/2019 (1107) [facility] NAME: NICOLE BE [address] [facility] PHYS: Lemuel Bethea MD : 1955 AGE: 63 SEX: F [place], [place] [address] LOC: TRINO PHONE #: [phone] EXAM DATE: 07/19/2019 STATUS: REG CLI FAX #: [phone] RAD #: D/C DT PAGE 2 Signed Report Notes Date/Time Note Provider Source 2021-11-05 07:32:00 [facility] ([facility]) Discharge Summary REPORT#:[id number] REPORT STATUS: Signed DATE:11/05/21 TIME: 731 PATIENT: NICOLE BE UNIT #: [id number] ROOM/BED: [address] : [birth year] AGE: 65 SEX: F ATTEND: Radames Thornton MD ADM AUTHOR: Radames Thornton MD * ALL edits or amendments must be made on the electronic/computer document * General Information Discharge date: 11/04/21 Hospital course: Discharge Diagnosis: Left Knee Degenerative Disease Procedure: Left Knee Arthroplasty Hospital Course and Findings The patient underwent the procedure without incident. Findings were significant for degenerative disease of the knee. The patient was hemodynamically and medically monitored during the postoperative period. Anticoagulation was instituted for postoperative DVT prophylaxis. The patient was progressively able to tolerate PO pain medications and the appropriate diet. Physical therapy was instituted, with a progressive ability to ambulate and perform exercises. The patient was eventually deemed stable and safe for discharge. Despite factors which projected a longer hospital stay, the patient fulfilled criteria for earlier than expected discharge, including control of pain, early mobilization with therapy, and a stable hemodynamic status. At discharge, the patient was comfortable, with a controlled pain level. There were no chest or abdominal symptoms present. Discharge physical examination demonstrated stable vital signs and no acute distress. The patient had an intact wound with no significant drainage, and no calf tenderness and a negative Roman's sign bilaterally. There were no neurologic or vascular deficits or changes from the preoperative state. Last Documented: Result Date Time Pulse Ox 99 11/04 1217 B/P 143/84 11/04 1217 B/P Mean 103.4 11/04 1217 O2 Delivery Room air 11/04 1217 Temp 97.7 11/04 1217 Pulse 56 12/14 1217 Resp 14 11/04 1217 O2 Flow Rate 3 11/03 1606 FiO2 32 11/03 1255 Disposition: Discharged to home Discharge Condition: Stable Instructions: Instruction sheet given to patient Activity: Ambulate with assistance, with weight-bearing as instructed in the hospital. Diet: As per preoperatively Prescriptions 1. Pain Medications: As per discharge prescription, with progressive weaning as pain decreases 2. Anticoagulation: As per discharge prescription, or PreOp anticoagulant, as discussed with patient 3. Physical Therapy: Will undergo PT for gait training, mobilization, gdfiw-gi-ujeqop, and strengthening. Patient was informed to that they need to arrange for therapy as quickly as possible. The importance of early advancement of exwwa-xz-wapuwh with home exercises, and physical therapy was stressed to the patient. Follow-up Appointment: Patient instructed to arrange appointment for an office visit in 2 weeks Med Rec Med Rec Discharge meds: Stop taking the following medications: [WEGOVY] 1.7 INJECTION [id number] Continue taking these medications: OLMESARTAN (BENICAR) 20 MG TAB 20 MILLIGRAM ORAL BEDTIME. OLMESARTAN/HCTZ (BENICAR HCT 20/12.5MG) 20 MG-12.5 MG TAB 1 TABLET ORAL DAILY. ZOLPIDEM CR (AMBIEN CR) 12.5 MG TAB.MPHASE 12.5 MILLIGRAM ORAL AT BEDTIME NEEDED. as needed for INSOMNIA HYDROcodone/APAP (NORCO 10/325) 10 MG-325 MG TAB 1 TABLET ORAL EVERY 6 HOURS NEEDED. as needed for PAIN SCALE 7-10 Comments: NEW MED traMADol (ULTRAM) 50 MG TAB 50 MILLIGRAM ORAL EVERY 6 HOURS NEEDED. as needed for ACUTE PAIN Comments: NEW MED Start taking the following new medications: ASPIRIN (ASPIRIN) 81 MG TAB.CHEW 81 MILLIGRAM ORAL TWICE DAILY. Qty = 60 No Refills DOXYCYCLINE HYCLATE (VIBRA-TAB) 100 MG TAB 100 MILLIGRAM ORAL EVERY 12 HOURS. Qty = 20 No Refills MELOXICAM (MOBIC) 15 MG TAB 15 MILLIGRAM ORAL DAILY. Days = 30 Qty = 30 No Refills Instructions: TAKE ONE TAB PO ONCE DAILY methocarbamoL (ROBAXIN) 500 MG TAB 500 MILLIGRAM ORAL FOUR TIMES DAILY NEEDED. as needed for SPASMS Days = 30 Qty = 60 No Refills Discharge Instructions PCP )( Discharge to: Home/Self Care Discharge Instructions Additional Discharge Routines: None )( Diet: Regular Follow-up Appointments Attending Physician: Attending Physician: Radames Thornton MD Attending physician follow up timeframe: In 1-2 weeks Special instructions: CALL FOR APPOINTMENT at 0733 RPT #:[id number] END OF REPORT [facility] 2021-11-04 07:53:00 [facility] ([facility]) Pain Management Progress Note REPORT#:[id number] REPORT STATUS: Signed DATE:11/04/21 TIME: 752 PATIENT: NICOLE BE UNIT #: [id number] ROOM/BED: [address] : [birth year] AGE: 65 SEX: F ATTEND: Radames Thornton MD ADM AUTHOR: Raegan Parada APRN * ALL edits or amendments must be made on the electronic/computer document * Subjective Chief Complaint: L KNEE PAIN S/P TKA Comments: Last Documented: Result Date Time Pulse Ox 99 11/04 715 B/P 125/84 11/04 715 B/P Mean 97.9 11/04 715 O2 Delivery Room air 11/04 715 Temp 36.7 11/04 0715 Pulse 58 11/04 0715 Resp 14 11/04 0715 O2 Flow Rate 3 11/03 1606 FiO2 32 11/03 1255 History: PMH: HTN, ANEMIA POD: 1 MD who placed block: DR PUENTE Type of block: AC S/S Activity status: PT SITTING UP IN A CHAIR WATCHING TV. Pain: STATES HAS LITTLE PAIN Physical Exam: VAS: 4 LOS: 1 Resp Quality: 1 Side Effects: NONE PT APPEARS COMFORTABLE AT THIS TIME. MOTOR MVMT AND STRENGTH INTACT TO LLE. Plan: BLOCK FOLLOW UP at 0756 RPT #:[id number] END OF REPORT [facility] 2021-11-03 10:45:00 [id number] [facility] [address] [place] [address] PATIENT NAME: NICOLE BE ADMIT DATE: 11/03/21 ACCOUNT NO: [id number] ROOM NO: Y.515 AGE: 65 REPORT TYPE: OPERATIVE REPORT SEX: F ADMITTING PHYSICIAN:Radames Thornton MD ATTENDING PHYSICIAN:Radames Thornton MD OPERATION DATE: 11/03/2021 SURGEON: Radames Thornton M.D. RESTAURANT AREA MANAGER: Adriana Mueller PA-C. PREOPERATIVE DIAGNOSIS: Left knee end-stage degenerative disease. POSTOPERATIVE DIAGNOSIS: Left knee end-stage degenerative disease. PROCEDURE PERFORMED: Left total knee arthroplasty. ANESTHESIA: COMPONENTS USED: DePuy Sigma posterior stabilized fixed-bearing knee system, femur size 3, tibia size 2.5, insert size 15, and patella size 38 oval. FINDINGS: End-stage degenerative disease of the left knee with complete joint space loss, osteophyte formation, subchondral sclerosis, and bone on bone changes. ESTIMATED BLOOD LOSS: 50 mL. Knee arthroplasty requires an registered dental assistant rda for holding of retractors for wide exposure so that the surgeon has both hands free to perform the surgery. In addition, with extremity surgery, the registered dental assistant rda positions and stabilizes the leg in order for the surgeon to use his hands to operate. Retraction for exposure and visualization, and stabilization of the extremity are vital to the procedure and not possible without an registered dental assistant rda. Dr. Thornton is not part of any residency or fellowship training programs and therefore required the help of the registered dental assistant rda listed above for this surgery. PROCEDURE DESCRIPTION: The patient was bought to the operating room and placed in the supine position. After induction of anesthesia, a tourniquet was placed on the upper thigh. Sterile prepping and draping proceeded. The tourniquet was inflated. A midline incision was made, centered over the patella. Dissection was sharply carried down through the subcutaneous tissues. VMO-splitting arthrotomy was performed. The patella was retracted laterally by the registered dental assistant rda and the leg was held in position by the registered dental assistant rda. PATIENT NAME: NICOLE BE The proximal medial tibia was denuded, with release of medial soft-tissues, the extent of which was dictated by the patient's deformity. The ACL and PCL were released. The medial and lateral meniscal remnants and suprapatellar fat pad were removed. Osteophytes were removed. An extramedullary tibial cutting jig was pinned to the proximal tibia and the tibial cut was made. Its alignment was checked and found to be appropriate. The distal femoral cut was made and the knee was balanced in extension. The femur was sized, rotation was set, and the flexion gap was balanced to the extension gap. The femoral anterior-posterior, chamfer, and notch-cuts were made. A spacer-block was used to check symmetry of the gaps and stability. The tibia was re-exposed and the leg was stabilized in the appropriate position by the registered dental assistant rda for tibial preparation. The tibia was sized and the tibial keel was drilled and punched after appropriate tibial rotation was set with an alignment annamaria, as well as by using anatomic landmarks. The femoral intramedullary hole was plugged with bone from the tibia. The trial femoral component was impacted onto the distal femur and found to have an excellent fit. A trial polyethylene was inserted. The knee was found to have excellent symmetric stability in the medial-lateral and edson-posterior directions in flexion and extension. The patella was held in a slightly everted position with knee in extension. Patellar width was checked with calipers. A cut of the patellar articular surface was performed and checked with calipers to ensure symmetry. Sizing was then performed and 3 lug holes were drilled with the jig in place, taking care to medialize and superiorize the component as much as possible, given bony anatomy. Excess lateral patellar bone was recessed and excess suprapatellar soft tissue was resected. The trial patellar component was placed. Knee weogd-xr-cutyhf, stability, and patellar tracking were found to be excellent. The trials were removed, and as the cement was mixed, all cut surfaces were thoroughly washed and dried. The registered dental assistant rda held the retractors for exposure and held the leg in the appropriate positions for cementation. The cement was applied to the final components and the cut surfaces with digital pressurization and then the components were impacted into position. The knee was brought into full extension with the trial polyethylene. Once the cement had hardened, the tourniquet was deflated. Excess cement was carefully looked for and removed. Thorough irrigation with several liters of antibiotic solution was performed. The tourniquet was deflated. Adequate hemostasis was obtained and confirmed. The final polyethylene component was engaged. Local anesthetic was injected into the capsule, arthrotomy site, and subcutaneous region. PATIENT NAME: NICOLE BE The arthrotomy was repaired, and after further irrigation, the subcutaneous tissues were closed in a multi-layered fashion. This was followed by skin closure. Sterile dressing was applied. The patient was awakened and transferred to the recovery room in stable condition. Dictated By: Radames Thornton MD WT: OP:YANELIS/SARAH/JULIA Conf#: [id number]/DID#: [id number] Authenticated by Radames Thornton MD On 11/04/2021 07:22:35 AM at 0722 PATIENT NAME: NICOLE BE [facility] 2021-11-03 09:35:00 [facility] ([facility] Op/Inv Procedure Note - Brief REPORT#:[id number] REPORT STATUS: Signed DATE:11/03/21 TIME: 934 PATIENT: NICOLE BE UNIT #: [id number] ROOM/BED: [place] [address] : [birth year] AGE: 65 SEX: F ATTEND: Radames Thornton MD [facility] AUTHOR: Radames Thornton MD * ALL edits or amendments must be made on the electronic/computer document * Op/Inv Proc Note - Brief TEXT Brief Op/Inv Procedure Note Note details: Pre-procedure diagnosis: Left Knee Degenerative Joint Disease Post-procedure diagnosis: Same Procedures performed: Left Total Knee Arthroplasty Primary Surgeon: NORBERTO Cigar Bander: [Martin MUELLER PA-C] Findings: Severe degenerative disease see dictated operative report for details Complications: None Estimated Blood Loss in ml s: [50] at 1157 RPT #:[id number] END OF REPORT [facility] 2021-10-28 11:03:00 [id number], [place] [address] PATIENT NAME: NICOLE BE ADMIT DATE: ACCOUNT NO: [id number] ROOM NO: AGE: 65 REPORT TYPE: ELECTROCARDIOGRAM SEX: F ADMITTING PHYSICIAN:Radames Thornton MD ATTENDING PHYSICIAN:Radames Thornton MD Order: [id number] Test Reason : PRE-OP CLEARANCE WITH HX OF HTN Test Date/Time Stamp: WedOct 28 2021 11:03:47 Blood Pressure : / mmHG Vent. Rate : 062 BPM Atrial Rate : 062 BPM P-R Int : 156 ms QRS Dur : 088 ms QT Int : 390 ms P-R-T Axes : 069 018 079 degrees QTc Int : 395 ms Normal sinus rhythm Normal ECG No previous ECGs available Confirmed by SEGUN MAN MD ([id number]) on 11/01/2021 11:42:20 AM Referred By: Christiano Palmer Confirmed by:SEGUN MAN MD at 1142 PATIENT NAME: NICOLE BE [facility]
[2024-09-30 02:04] LABS: Absolute Lymphocytes (CBC) 0.7 K/uL (0.7-4.9); Absolute Monocytes 0.5 K/uL (0.1-1.3); Absolute Neutrophil 11.2 K/uL (1.8-8.0); Basophils % 0.4 % (0-1.3); Eosinophils % 0.1 % (0-4.4); Hematocrit 34.3 % (36.0-45.0); Hemoglobin 11.1 g/dL (12.0-15.0); Lymphocytes % 5.8 % (15.3-44.8); MCHC 32.3 g/dL (32.0-36.0); MCV 83.7 fL (80-100); MPV 7.8 fL (7.6-11.3); Neutrophils % 89.7 % (41.7-73.7); Nucleated Red Blood Cells % 0.2 % (0-0); Platelets 279 thou/uL (152-406); RBC Red Blood Cell Count 4.09 M/uL (3.86-4.86); Red Cell Distribution Width 14.6 % (12.1-15.2)
[2024-09-30 02:31] LABS: Albumin 3.5 g/dL (3.4-5.0); Albumin/Globulin Ratio 0.7 (1.1-1.8); Anion Gap 9.6 mEq/L (5.0-15.0); Bilirubin Total 0.3 mg/dL (0.2-1.0); Globulin 4.7 g/dL (2.3-3.5); Potassium 3.6 mEq/L (3.5-5.1); Protein, Total 8.2 g/dL (6.4-8.2)
[2024-09-30] MEDS ORDERED: KETOROLAC 30 MG/ML INJ ONE (02:31)
[2024-09-30] MEDS ORDERED: ONDANSETRON 4 MG/2 ML VIAL ONE ×2 (02:31→15:12)
[2024-09-30] MEDS ORDERED: MORPHINE 4 MG/ML SYR ONE (02:32)
[2024-09-30 03:06] LABS: Specific Gravity 1.021 (1.005-1.030); Urine Bacteria 20-50 /HPF (<20); Urine Bilirubin NEGATIVE (Negative); Urine Blood Negative (Negative); Urine Clarity Extremely Turbid (Clear); Urine Color Light-Yellow (Yellow); Urine Culture Reflex Order REFLEXED; Urine Glucose NEGATIVE (Negative); Urine Ketones NEGATIVE (Negative); Urine Microscopic Reflex YN ORDER UMIC; Urine Mucus Slight /HPF (None Seen); Urine Nitrite NEGATIVE (Negative); Urine Protein 1+ (Negative); Urine RBC <5 /HPF (None Seen); Urine Urobilinogen Normal (Normal); Urine WBC Clump Rare /HPF (None Seen)
[2024-09-30 03:11] LABS: Blood Morphology Comment NOT SEEN (NOT SEEN); Platelet Estimate ADEQ; White Blood Cell Scan OK (OK)
[2024-09-30] MEDS ORDERED: NA CHLORIDE 0.9% 1,000 ML ONE ×3 (03:20→15:35)
[2024-09-30] MEDS ORDERED: CEFTRIAXONE 1000 MG/VIAL ONE (03:20)
--- NOTE | 2024-09-30 03:55 | ER ---
Nurse's Notes [facility] Name: Joaquin Pierce Age: 68 yrs Sex: Female : 1955 Arrival Date: 09/30/2024 Time: 00:57 Bed 18 Private MD: Diagnosis: Acute appendicitis with localized peritonitis Presentation: 09/30 01:17 Chief complaint: Patient states: right lower abdominal pain radiating to right lower lg3 back X4 HR with nausea. Coronavirus screen: Client denies travel out of the [place] in the last 14 days. At this time, the client does not indicate any symptoms associated with coronavirus-19. Ebola Screen: No symptoms or risks identified at this time. Initial Sepsis Screen: Does the patient meet any 2 criteria? No. Patient's initial sepsis screen is negative. Does the patient have a suspected source of infection? No. Patient's initial sepsis screen is negative. Risk Assessment: Do you want to hurt yourself or someone else? Patient reports no desire to harm self or others. Onset of symptoms was September 29, 2024. 01:17 Method Of Arrival: Ambulatory lg3 01:17 Acuity: MATTEO 3 lg3 Triage Assessment: 01:20 General: Appears in no apparent distress. uncomfortable, Behavior is calm, cooperative. lg3 Pain: Complains of pain in right lower quadrant Pain radiates to back. EENT: No deficits noted. No signs and/or symptoms were reported regarding the EENT system. Neuro: No deficits noted. Gardner Agitation-Sedation Scale (RASS): 0 - Alert and Calm Level of Consciousness is awake, alert, obeys commands, Oriented to person, place, time, situation. Cardiovascular: No deficits noted. Denies chest pain, shortness of breath, Capillary refill < 3 seconds Clubbing of nail beds is absent JVD is absent Patient's skin is warm and dry. Respiratory: No deficits noted. Airway is patent Respiratory effort is even, unlabored, Respiratory pattern is regular, symmetrical. GI: Abdomen is round non-distended, Reports lower abdominal pain. : No signs and/or symptoms were reported regarding the genitourinary system. Derm: No deficits noted. No signs and/or symptoms reported regarding the dermatologic system. Skin is intact, is healthy with good turgor, Skin is dry, Skin is normal, Skin temperature is warm. Musculoskeletal: Circulation, motion, and sensation intact. Range of motion: intact in all extremities, Reports pain in back. Historical: - Allergies: 01:20 No Known Allergies; lg3 - Home Meds: 01:20 olmesartan 40 mg oral tablet [Active]; amlodipine 10 mg tablet [Active]; furosemide 20 lg3 mg Oral tablet [Active]; atorvastatin 20 mg oral tablet [Active]; - PMHx: 01:20 Hypertensive disorder; high cholesterol; lg3 - PSHx: 01:20 Total abdominal hysterectomy; lg3 - Immunization history:: Adult Immunizations up to date. - Infectious Disease History:: Denies. - Social history:: Smoking status: Patient denies any tobacco usage or history of. Patient/guardian denies using alcohol, street drugs. Screenin:30 [facility] ED Fall Risk Assessment (Adult) History of falling in the last 3 months, cp4 including since admission No falls in past 3 months (0 pts) Confusion or Disorientation No (0 pts) Intoxicated or Sedated No (0 pts) Impaired Gait No (0 pts) Mobility Assist Device Used No (0 pt) Altered Elimination No (0 pt) Score/Fall Risk Level 0 - 2 = Low Risk Oriented to surroundings, Maintained a safe environment, Assessed \T\ reinforced patient's understanding of fall precautions, Hourly rounding (assess needs \T\ fall precautionary measures) done. Abuse screen: Denies threats or abuse. Nutritional screening: No deficits noted. Tuberculosis screening: No symptoms or risk factors identified. Assessment: 01:30 General: Appears in no apparent distress. uncomfortable, Behavior is calm, cooperative, cp4 appropriate for age. 01:30 Pain: Complains of pain in back and abdomen and right lower quadrant. Neuro: Level of cp4 Consciousness is awake, alert, obeys commands, Oriented to person, place, time, situation. Cardiovascular: Patient's skin is warm and dry. Respiratory: Airway is patent Respiratory effort is even, unlabored. GI: Abdomen is round non-distended, Bowel sounds present X 4 quads. Abd is soft and non tender X 4 quads. : No signs and/or symptoms were reported regarding the genitourinary system. EENT: No signs and/or symptoms were reported regarding the EENT system. Derm: No signs and/or symptoms reported regarding the dermatologic system. Musculoskeletal: No signs and/or symptoms reported regarding the musculoskeletal system. Vital Signs: 01:17 BP 140 / 87; Pulse 75; Resp 16 S; Temp 98.5(O); Pulse Ox 100% on R/A; Weight 102.97 kg lg3 (R); Height 5 ft. 6 in. (R); Pain 10/10; 02:00 BP 191 / 90; Pulse 81; Resp 18; Pulse Ox 97% ; cp4 03:00 BP 154 / 94; Pulse 69; Resp 18; Pulse Ox 100% ; cp4 04:00 BP 115 / 73; Pulse 84; Resp 18; Pulse Ox 97% ; cp4 05:00 BP 120 / 76; Pulse 81; Resp 18; Pulse Ox 98% ; cp4 01:17 Body Mass Index 36.64 (102.97 kg, 167.64 cm) lg3 01:17 Pain Scale: Adult lg3 ED Course: 01:04 Patient arrived in ED. gm2 01:19 Jace Vega MD is Attending Physician. ec2 01:20 Triage completed. lg3 01:20 Arm band placed on right wrist. lg3 01:30 Bed in low position. Call light in reach. Side rails up X 1. Provided Education on: cp4 abdominal pain. 01:30 No provider procedures requiring assistance completed. cp4 01:39 Gisselle Ann is Primary Nurse. cp4 02:29 CT Abd/Pelvis - Without Contrast In Process Unspecified. EDMS 03:55 Prince Mcginnis MD is Hospitalizing Provider. ec2 05:13 Prince Mcginnis MD is Hospitalizing Provider. ec2 06:54 Patient admitted, IV remains in place. cp4 Administered Medications: 02:46 Drug: Ketorolac IVP 15 mg IVP once Route: IVP; Site: left antecubital; cp4 03:15 Follow up: Response: No adverse reaction; Pain is decreased cp4 02:47 Drug: Ondansetron IVP 4 mg IVP once; over 2 minutes Route: IVP; Site: left antecubital; cp4 05:14 Follow up: Response: No adverse reaction cp4 02:47 Drug: morphine IVP or IV 4 mg IVP once over 4 mins Route: IVP; Infused Over: 4 mins; cp4 Site: left antecubital; 03:15 Follow up: Response: No adverse reaction; Pain is decreased cp4 03:24 Drug: Rocephin IV 1 grams IV at calculated rate once; Given slow IV push per pharmacy cp4 instructions Route: IV; Rate: calculated rate; Site: left antecubital; 03:25 Follow up: Response: No adverse reaction; IV Status: Completed infusion cp4 03:24 Drug: NS 0.9% IV 1000 ml IV at 1000 ml once; to be given as a bolus over 60 minutes cp4 Route: IV; Rate: 1000 ml; Site: left antecubital; 05:13 Follow up: IV Status: Completed infusion cp4 04:09 Drug: metroNIDAZOLE IVPB 500 mg 100 ml IVPB at 200 ml/hr once over 30 mins Volume: 100 cp4 ml; Route: IVPB; Rate: 200 ml/hr; Infused Over: 30 mins; Site: left antecubital; 05:13 Follow up: Response: No adverse reaction; IV Status: Completed infusion cp4 Medication: 01:30 VIS not applicable for this client. cp4 Outcome: 03:55 Decision to Hospitalize by Provider. ec2 05:13 Decision to Hospitalize by Provider. ec2 06:54 Admitted to ER Hold. Please see [facility] for further documentation. cp4 06:54 Condition: stable 06:54 Instructed on the need for admit, 08:56 Patient left the ED. kc6 Signatures: Dispatcher [employer] Christina Liriano RN RN lg3 Lorna Jones RN RN kc6 Jace Vega MD MD ec2 Gisselle Ann cp4 Lita Ferrer 2 Corrections: (The following items were deleted from the chart) 01:22 01:20 Home Meds: None; lg3 lg3
--- NOTE | 2024-09-30 03:55 | EDPHYS ---
Physician Documentation [facility] Name: Joaquin Pierce Age: 68 yrs Sex: Female : 1955 Arrival Date: 09/30/2024 Time: 00:57 Bed 18 Private MD: ED Physician Jace Vega HPI: 09/30 02:23 This 68 yrs old Black Female presents to ER via Ambulatory with complaints of Back ec2 Pain, Rt side abd pain. 02:23 Patient arrives today for evaluation of right-sided abdominal pain. Patient reports ec2 that she is experiencing right-sided abdominal pain throughout the day. Patient complaining of some associated nausea without vomiting. No diarrhea symptoms. No urinary complaints. Previous history of hysterectomy.. Historical: - Allergies: 01:20 No Known Allergies; lg3 - Home Meds: 01:20 olmesartan 40 mg oral tablet [Active]; amlodipine 10 mg tablet [Active]; furosemide 20 lg3 mg Oral tablet [Active]; atorvastatin 20 mg oral tablet [Active]; - PMHx: 01:20 Hypertensive disorder; high cholesterol; lg3 - PSHx: 01:20 Total abdominal hysterectomy; lg3 - Immunization history:: Adult Immunizations up to date. - Infectious Disease History:: Denies. - Social history:: Smoking status: Patient denies any tobacco usage or history of. Patient/guardian denies using alcohol, street drugs. ROS: 02:23 Constitutional: as per hpi ec2 Exam: 02:23 Constitutional: GEN: NAD Head: atraumatic Eyes: EOMI Ears: External ears are ec2 normal. CV: regular rate LUNGS: no respiratory distress ABD: non-distended, soft, tender in the right abdomen, no guarding, not rigid SKIN: no evidence of rashes MSK: no evidence of trauma Vital Signs: 01:17 BP 140 / 87; Pulse 75; Resp 16 S; Temp 98.5(O); Pulse Ox 100% on R/A; Weight 102.97 kg lg3 (R); Height 5 ft. 6 in. (R); Pain 10/10; 02:00 BP 191 / 90; Pulse 81; Resp 18; Pulse Ox 97% ; cp4 03:00 BP 154 / 94; Pulse 69; Resp 18; Pulse Ox 100% ; cp4 04:00 BP 115 / 73; Pulse 84; Resp 18; Pulse Ox 97% ; cp4 05:00 BP 120 / 76; Pulse 81; Resp 18; Pulse Ox 98% ; cp4 01:17 Body Mass Index 36.64 (102.97 kg, 167.64 cm) lg3 01:17 Pain Scale: Adult lg3 MDM: 01:39 Medical Screening Exam initiated ec2 02:23 Data reviewed: vital signs. ED course: Patient arrives today for evaluation of ec2 right-sided abdominal pain. Examination remarkable for abdominal findings as above. Will obtain lab work, urine studies, CT imaging.. 03:15 ED course: CBC shows leukocytosis of 12.4. Metabolic profile shows slight renal ec2 dysfunction with a creatinine of 1.57. Urine is remarkable for leuk esterase and WBCs.. 03:55 ED course: CT abdomen pelvis shows appendicitis. Will admit with general surgery ec2 consultation. Discussed w/ general surgery and medicine. 09/30 01:38 Order name: CBC with Diff; Complete Time: 03:15 ec2 09/30 01:38 Order name: CMP; Complete Time: 03:15 ec2 09/30 01:38 Order name: Lipase; Complete Time: 03:15 ec2 09/30 01:38 Order name: Urinalysis w/ reflexes; Complete Time: 03:15 ec2 09/30 03:10 Order name: Urine Culture EDDC 09/30 03:11 Order name: CBC Smear Scan; Complete Time: 03:15 EDMS 09/30 05:42 Order name: Lactate w/ 2H reflex if indic. EDDC 09/30 05:42 Order name: Magnesium EDDC 09/30 05:42 Order name: Phosphorus EDMS 09/30 05:42 Order name: Urinalysis w/ reflexes EDMS 09/30 05:43 Order name: Basic Metabolic Panel EDMS 09/30 05:43 Order name: Basic Metabolic Panel EDDC 09/30 05:43 Order name: Comprehensive Metabolic Panel EDDC 09/30 05:43 Order name: Comprehensive Metabolic Panel EDDC 09/30 05:43 Order name: Blood Culture EDDC 09/30 01:38 Order name: CT Abd/Pelvis - Without Contrast ec2 09/30 05:42 Order name: CONS Physician Consult EDDC 09/30 01:38 Order name: IV Saline Lock; Complete Time: 02:01 ec2 09/30 01:38 Order name: Labs collected and sent; Complete Time: 02:01 ec2 Administered Medications: 02:46 Drug: Ketorolac IVP 15 mg IVP once Route: IVP; Site: left antecubital; cp4 03:15 Follow up: Response: No adverse reaction; Pain is decreased cp4 02:47 Drug: Ondansetron IVP 4 mg IVP once; over 2 minutes Route: IVP; Site: left antecubital; cp4 05:14 Follow up: Response: No adverse reaction cp4 02:47 Drug: morphine IVP or IV 4 mg IVP once over 4 mins Route: IVP; Infused Over: 4 mins; cp4 Site: left antecubital; 03:15 Follow up: Response: No adverse reaction; Pain is decreased cp4 03:24 Drug: Rocephin IV 1 grams IV at calculated rate once; Given slow IV push per pharmacy cp4 instructions Route: IV; Rate: calculated rate; Site: left antecubital; 03:25 Follow up: Response: No adverse reaction; IV Status: Completed infusion cp4 03:24 Drug: NS 0.9% IV 1000 ml IV at 1000 ml once; to be given as a bolus over 60 minutes cp4 Route: IV; Rate: 1000 ml; Site: left antecubital; 05:13 Follow up: IV Status: Completed infusion cp4 04:09 Drug: metroNIDAZOLE IVPB 500 mg 100 ml IVPB at 200 ml/hr once over 30 mins Volume: 100 cp4 ml; Route: IVPB; Rate: 200 ml/hr; Infused Over: 30 mins; Site: left antecubital; 05:13 Follow up: Response: No adverse reaction; IV Status: Completed infusion cp4 Disposition Summary: 09/30/24 05:13 Hospitalization Ordered Notes: Hospitalization Status: Inpatient Admission(09/30/24 05:13) ec2 Provider: Prince Rahel(09/30/24 05:13) ec2 Condition: Stable(09/30/24 05:13) ec2 Problem: new(09/30/24 05:13) ec2 Symptoms: have improved(09/30/24 05:13) ec2 Bed/Room Type: Standard(09/30/24 05:13) ec2 Location: Telemetry/MedSurg (Inpatient)(09/30/24 07:32) eb Room Assignment: 210(09/30/24 07:32) eb Diagnosis - Acute appendicitis with localized peritonitis(09/30/24 05:13) ec2 Forms: - Medication Reconciliation Form ec2 - SBAR form ec2 - Leadership Thank You Letter ec2 Signatures: Dispatcher [employer] EDMS Fritz IrisChristina Vazquez RN RN lg3 Breonna Miller rv1 Jace Vega MD MD ec2 Gisselle Ann cp4 Corrections: (The following items were deleted from the chart) 01:22 01:20 Home Meds: None; lg3 lg3 01:39 01:39 CBC+H.LAB.BRZ ordered. EDMS EDMS 01:39 01:39 COMPREHENSIVE METABOLIC PANEL+C.LAB.BRZ ordered. EDMS EDMS 01:39 01:39 LIPASE+C.LAB.BRZ ordered. EDMS EDMS 01:39 01:39 Urinalysis+U.LAB.BRZ ordered. EDMS EDMS 04:21 03:55 Telemetry/MedSurg (Inpatient) ec2 lg3 04:21 03:55 ec2 lg3 04:27 03:55 Inpatient Admission ec2 ec2 04:27 03:55 Prince Rahel ec2 ec2 04:27 03:55 Stable ec2 ec2 04:27 03:55 new ec2 ec2 04:27 03:55 have improved ec2 ec2 04:27 03:55 Standard ec2 ec2 04:27 03:55 Acute appendicitis with localized peritonitis ec2 ec2 04:27 04:21 BR ER HOLD lg3 ec2 04:27 04:21 ERHOLD- lg3 ec2 05:27 05:13 Telemetry/MedSurg (Inpatient) ec2 rv1 05:27 05:13 ec2 rv1 07:32 05:27 [facility] ER HOLD rv1 eb 07:32 05:27 ERHOLD- rv1 eb
[2024-09-30] MEDS ORDERED: METRONIDAZOLE 500mg IVPB 500 MG/100 ML BAG IV ONE (04:03)
[2024-09-30] MEDS ORDERED: ONDANSETRON 4 MG/2 ML VIAL IV PRN (05:39)
[2024-09-30] MEDS ORDERED: HYDROMORPHONE HCL 1 MG/ML INJ IV PRN (05:41)
[2024-09-30] MEDS: PANTOPRAZOLE 40 MG INJ IVP SCH (05:44)
[2024-09-30] MEDS ORDERED: SODIUM CHLORIDE 0.9% 10ML INJ IV PRN (05:44)
[2024-09-30] MEDS ORDERED: HYDRALAZINE HCL 20 MG/ML VIAL IV PRN (05:44)
--- NOTE | 2024-09-30 05:45 | P.HP ---
Certification for Inpatient Patient admitted to: Observation With expected LOS: <2 Midnights Practitioner: I am a practitioner with admitting privileges, knowledge of patient current condition, hospital course, and medical plan of care. Services: Services provided to patient in accordance with Admission requirements found in Title 42 Section 412.3 of the Code of Federal Regulations Patient History Date of Service: 09/30/24 Reason for admission: Abdominal pain History of Present Illness: Patient is a 68-year-old -[place]ian female with a past medical history of hypertension and hyperlipidemia. She presented to the ER complaining of an acute onset of right lower quadrant abdominal pain that started around 9 PM last night. Her symptoms have not let up since the onset. She has nausea and dry heaving. Denies vomiting. She also denies fever or chills or diarrhea. Workup in the ER revealed acute appendicitis. Patient has a WBC of more than 12,000. She is being admitted for appendectomy Allergies No Known Allergies Allergy (Verified 04/06/19 08:42) Home Medications: Cephalexin [Keflex*] 500 mg PO BID 04/06/19 Olmesartan Medoxomil [Benicar] 20 mg PO [id number] 04/06/19 Physical Examination - Physical Exam General: In no apparent distress HEENT: Atraumatic, Normocephalic Respiratory: Clear to auscultation bilaterally, Normal air movement Cardiovascular: No edema, Normal pulses, Regular rate/rhythm, Normal S1 S2 Gastrointestinal: Soft and benign, Tenderness (Right lower quadrant tenderness) Musculoskeletal: No clubbing, No swelling, No contractures, No erythema, No tenderness, No warmth Neurological: Normal speech - Studies Laboratory Data (last 24 hrs) 09/30/24 09/30/24 01:52 01:52 WBC 12.40 H Hgb 11.1 L Hct 34.3 L Plt Count 279 Sodium 141 Potassium 3.6 BUN 29 H Creatinine 1.57 H Glucose 121 H Total Bilirubin 0.3 AST 18 ALT 19 Alkaline Phosphatase 93 Lipase 51 Assessment and Plan - Problems (Diagnosis) (1) Acute appendicitis Current Visit: Yes Status: Acute (2) Hypertension Current Visit: Yes Status: Acute (3) Hyperlipidemia Current Visit: Yes Status: Acute - Plan Assessment This is a 68-year-old -[place]ian female who is being admitted with acute appendicitis after she presented with sudden onset of right lower quadrant pain. Acute appendicitis SERG Hypertension Hyperlipidemia Plan: Will admit under observation Keep patient n.p.o. Start patient on Zosyn, Zofran and pain medication Consult placed to general surgery for appendectomy We will give a trial of IV fluid for SERG Repeat BMP later in the day SCD for DVT prophylaxis PPI for GI prophylaxis As needed IV hydralazine for hypertension Patient can be discharged once cleared by general surgery - Advance Directives Does patient have a Living Will: No Does patient have a Durable POA for Healthcare: No
[2024-09-30] MEDS: NA CHLORIDE 0.9% 1,000 ML IV SCH (06:00)
[2024-09-30] MEDS ORDERED: PANTOPRAZOLE 40 MG INJ ONE (06:11)
--- NOTE | 2024-09-30 06:29 | RAD REPORT ---
ADDENDUM #1 Addendum: Dr. Crockett discussed these critical findings with Dr. Jace Vega via telephone at approximately 05:0 4 hours EST on 09/30/2024. Electronically signed by: Stephen Crockett MD 09/30/2024 06:24 AM [facility] End of Addendum PROCEDURE: CT Abdomen and Pelvis Without Intravenous Contrast CLINICAL INDICATION: The patient is 68 years old and is Female; Right flank pain. TECHNIQUE: Axial computed tomography images of the abdomen and pelvis without intravenous contrast. Sagittal a nd coronal reformatted images were created and reviewed. This CT exam was performed using one or more of the following dose reduction techniques: automated exposure control, adjustment of the mA a nd/or kV according to patient size, and/or use of iterative reconstruction technique. COMPARISON: None. FINDINGS: LUNG BASES: Unremarkable No mass. No consolidation. ABDOMEN: LIVER: Unremarkable GALLBLADDER AND BILE DUCTS: Gallstones. Gallbladder otherwise unremarkable. No ductal dilation. PANCREAS: Unremarkable No ductal dilation. SPLEEN: Unremarkable No splenomegaly. ADRENALS: Diffuse thickening of the bilateral adrenal glands with no discrete focal nodule or mass. KIDNEYS AND URETERS: Simple renal cysts. No follow-up of these simple cysts is necessary. No hydronephrosis or obstructive intrarenal or intraureteral stones. STOMACH AND BOWEL: Lap-band demonstrated at the gastroesophageal junction, with phi-angle measuring approximately 47 degrees (normal is between 4 and 58). Colonic diverticulosis without evidence of acute diverticulitis. No evidence of small or large bowel obstruction. No perienteric or pericolonic fat stranding or abnormal mucosal thickening. PELVIS: APPENDIX: Dilatation of the appendix, measuring up to 2.5 cm at the base, with periappendiceal fat stranding and multiple hyperdensities within the lumen, favoring appendicoliths or retained hyperdense material. BLADDER: Unremarkable No stones. REPRODUCTIVE: Hysterectomy. ABDOMEN and PELVIS: INTRAPERITONEAL SPACE: No pneumoperitoneum or suspicious abdominal pelvic free fluid or fluid colle ction to suggest perforation. BONES/JOINTS: Mild degenerative changes of bilateral hips, with subchondral cystic formation. No acute fracture. No dislocation. SOFT TISSUES: Small fat-containing bilateral inguinal hernias. VASCULATURE: Moderate calcified atherosclerosis of the abdominal aorta without aneurysmal dilatatio n. Bilateral intrapelvic phleboliths. LYMPH NODES: No suspicious right lower quadrant or other abdominal pelvic lymphadenopathy. IMPRESSION: 1. Acute appendicitis, without evidence of perforation. Thickened appearance of the appendiceal bas e, as well as patient age, are suspicious for underlying obstructive adenocarcinoma/neoplasm. 2. Cholelithiasis. 3. Colonic diverticulosis. 4. Lap-band demonstrated at the gastroesophageal junction, with phi-angle measuring approximately 4 7 degrees (normal is between 4 and 58). Electronically signed by: Stephen Crockett MD 09/30/2024 03:59 AM [facility] Due to temporary technical issues with the PACS/Sokrati reporting system, reports are being billy d by the in-house radiologist without review as a courtesy to ensure prompt reporting the interpreting radiologist is fully responsible for the content of the report. Transcribed Date/Time: 09/30/2024 6:29 AM
[2024-09-30] MEDS: POTASSIUM 25 MEQ EFFERV TAB PO ONE (06:37)
[2024-09-30 06:51] VITALS: BMI 36.3
[2024-09-30] MEDS: KCL 20 MEQ/100 mL IVPB 20 MEQ/100 ML BAG IV SCH (07:00)
[2024-09-30] MEDS ORDERED: FLU (Fluarix Triv) TS24-25(6MOS UP)/PF 45 MCG/0.5 ML Syringe IM ONE (07:15)
[2024-09-30] MEDS ORDERED: KCL 20 MEQ/100 mL IVPB 100 ML IV ONE (07:55)
[2024-09-30] MEDS ORDERED: PNEUMOCOCCAL VACCINE 0.5 ML IMVAC ONE (08:00)
--- NOTE | 2024-09-30 08:20 | P.PN ---
Date of Service: 09/30/24 Subjective: reports dealing with some RLQ pain radiating to her back doesn't think abdominal pain is getting worse denies any urinary symptoms no issues overnight afebrile ROS: 10 point ROS as noted above, otherwise negative Physical Exam: GEN: Alert, NAD HEENT: Normal conjunctiva, sclera anicteric CV: Regular rate and rhythm, no edema Pulm: Nonlabored respirations on room air, clear bilaterally ABD: soft, RLQ tenderness, nondistended Neuro: Normal speech, normal affect Problem List: Acute appendicitis SERG bacteriuria, asymptomatic Hypertension Hyperlipidemia Hx Bilteral knee replacements Hx Breast cancer (2021) Acute appendicitis on admission, presents with sudden onset RLQ abdominal pain CT abdomen (09/30): acute appendicitis without evidence of perforation. Thickened appearance of appendiceal base, suspicious for underlying obstructive adenocarcinoma/neoplasm Cholelithiasis. Colonic diverticulosis, diffuse thickening of bilateral adrenal glands, bilateral intrapelvic phlebolith, simple renal cysts, small bilateral inguinal hernias, lap-band demonstrated at the gastroesophageal junction with phi-angle of [address] Nicholson, general surgeon consulted NPO for possible appendectomy today continue empiric zosyn (09/30-) follow urine/blood cultures protonix BID pain control SERG creatinine 1.57 on admission continue IV fluids continue to monitor renal function bacteriuria, asymptomatic UA with +LE, +WBC, +bacteria Asymptomatic. Denies any urinary symptoms follow urine / blood cultures Hypertension Hyperlipidemia Hx Bilteral knee replacements Hx Breast cancer (2021) confirm home meds, restart as appropriate VTE: Lovenox Code: Full Dispo: Home, ~1 day Pending surgical recs / possible surgery Time Spent Managing Pts Care (In Minutes): 41
[2024-09-30] MEDS: PIPER TAZO 3.375 GM in NA CHLORIDE 0.9% 100 ML IV SCH (10:55)
[2024-09-30] MEDS ORDERED: SUCCINYLCHOLINE 20 MG/ML (10 ML) IV ONE (14:23)
[2024-09-30] MEDS ORDERED: FENTANYL CITR 100 MCG/2 ML ONE (14:35)
[2024-09-30] MEDS ORDERED: ROCURONIUM 50 MG/5 ML VIAL IV ONE (14:35)
[2024-09-30] MEDS ORDERED: MIDAZOLAM HCL 2 MG/2 ML INJ ONE (14:35)
[2024-09-30] MEDS ORDERED: propofoL 200 MG/20 ML VIAL IV ONE (14:35)
[2024-09-30] MEDS ORDERED: dexAMETHasone 4 MG/ML VIAL ONE (15:12)
[2024-09-30] MEDS ORDERED: SUGAMMADEX SODIUM 200 MG/2 ML VIAL IV ONE (15:16)
--- NOTE | 2024-09-30 15:24 | P.BOP ---
Preoperative diagnosis: acute apppendicitis Postoperative diagnosis: same Primary procedure: Laparoscopic appendectomy Estimated blood loss: <10cc Specimen: tiki Findings: acute appendicitis Anesthesia: General Complications: None Transferred to: Recovery Room Condition: Good
[2024-09-30] MEDS ORDERED: HYDROCODONE/APAP 5/325 MG TAB PO PRN (15:30)
[2024-09-30] MEDS ORDERED: Ringers Lactate 1,000 ML IV ONE (15:35)
[2024-09-30 15:47] VITALS: O2SAT 100
[2024-09-30 16:02] VITALS: BP 143/72; TEMP 97.8
--- NOTE | 2024-09-30 16:14 | CON ---
Date of Consultation: 09/30/2024 Diagnosis: Appendicitis. History Of Present Illness: This is a case of a 68-year-old patient who came today with a right lowe r quadrant tenderness, started last night, got worse. Today, she was admitted to the hospital with a cute appendicitis, although the CAT scan also shows that on the base of the appendix, there was some swelling in that region and they cannot rule out a neoplasm. The patient does not recall any episode like this before. The last colonoscopy she says was about 5 years ago and it was negative. No imme diate family history of colon cancer, although there is an aunt that she thinks had some colon cancer . No dysuria, hematuria, hematochezia, melena. No recent traveling out of the country. No family m ember sick at home. Review of Systems: 10 points otherwise unremarkable. Allergies: NONE. Medications: Keflex and Benicar. Surgeries: Lap band about 30 years ago. Social History: She does not smoke. She does not drink alcohol. Family History: As above. Physical Examination: Vital Signs: Reviewed. General: The patient is awake, alert. HEENT: Pupils are equal and reactive. Anicteric. Neck: Supple. Chest: Clear. Abdomen: Right lower quadrant tenderness with guarding and rebound. Breasts, Pelvic, Rectal: Deferred. Extremities: Good capillary refill. Laboratory Data: WBC count of 12. Potassium 3.6. Glucose 121. CAT scan of the abdomen and pelvis interpreted by Dr. Zaldivar as gallstones. The patient also has diffuse thickening of bilateral adre nal glands with no masses seen. Renal cyst. History of lap band and GE junction colonic diverticulo sis without diverticulitis. The area of the appendix shows dilatation of the appendix up to about 2. 5 cm at the base and he described with periappendiceal fat stranding and multiple hyperdensities with in the lumen favoring appendicolith or retained hyperdense material. Under conclusion, he also menti oned due to patient age cannot rule out some neoplasm. Assessment: Acute appendicitis, colitis. I explained to the patient the benefits, alternatives, and risks laparoscopic possible open appendectomy, which include, but not limited to infection, bleeding , damage to adjacent structures, anesthesia complication, abscess, SD, and even . But we also u marikatand that even though she had a colonoscopy 5 years ago, we cannot rule out neoplasm. If we can fix that while we are here right now, we might have to do a right hemicolectomy or cecectomy and lorie t will require most likely a midline incision and she understands that process. If we cannot see any thing obvious, this can be delayed. We will proceed then to get her better from the appendix and the n do a proper workup including a bowel preparation that cannot be done at this moment. That may also include a colonoscopy. TREE/RUFINA Voice ID: [id number] Report ID: [id number]
--- NOTE | 2024-09-30 17:23 | OP ---
Date of Procedure: 09/30/2024 Surgeon: Iam Nicholson MD Preoperative Diagnosis: Acute appendicitis. Postoperative Diagnosis: Acute appendicitis. Procedure: Laparoscopic appendectomy. Anesthesia: General plus local. Complications: None. Indications: This is the case of a 68-year-old patient, came with above diagnosis, fully explained t he benefits, alternatives, and risks of laparoscopic possible open appendectomy, which include, but n ot limited to infection, bleeding, damage to adjacent structures, anesthesia complication, recurrence , RI, even . She also understands this may not relieve her symptoms. She might need more than one surgical intervention. She understood, signed a consent. We also explained to her and the daboni barry the importance of postop colonoscopy in the next few weeks. If we do not find any tumor in the a ppendix or even visualize at this moment with the camera, that does not mean that the neoplasia gregor p should not be done. We encouraged her to have a colonoscopy repeated whenever it is medically safe in the next few weeks. She understood, signed a consent. Description Of Procedure: The patient brought to the operating room, placed in supine position. Ane sthesia was achieved without complication. Abdominal area was prepped and draped in a sterile fashio n. A time-out was called. Incision was made in the infraumbilical region after injecting local anes thetic. Fascia was encountered, opened under direct vision. Vicryl #1 placed inside the fascia. Aceves sson trocar was carefully introduced. Pneumoperitoneum was obtained. I placed 2 more trocars, 5 mm each one of them, 1 in the suprapubic area, another 1 in left lower quadrant, using same technique wh ich consisted of local anesthetic, sharp incision of the skin and introduction of the trocars under d irect vision. This helped me visualize the area of the pelvis and abdomen. Irrigation was done. We noticed to have an inflamed appendix, but right at the base of the appendix seemed to be a window th at we can use to transect that appendix. We went through thick mesoappendix, for help us to navigate those areas and also mobilize the cecum a little bit to be able to obtain access to the base of the appendix, we used the LigaSure to the take the mesoappendix and also LigaSure to mobilize the cecum e nough to be able to find once again the base of the appendix. After that, we proceeded to transect t he appendix with the Endo-MAX 45 mm nonvascular. Appendix removed from abdominal cavity using EndoCa tch through umbilical incision. Irrigation was done. Visualization was done. No bleeding. No hebre l leak. At that moment, I proceeded to remove the trocars under direct vision. Deflated pneumoperit oneum. Closed the fascia with #1 Vicryl, irrigated subcutaneous tissue, closed that with 3-0 chromic and skin with renate. Sponge count, instrument counts correct. The patient tolerated the procedur e well. The patient sent to recovery in stable condition. Discussed the case with the primary docto r. If she is able to tolerate diet, she wants to go home. If she tolerates diet and she is recoveri ng clinically and clinically stable, she may go home, but we explained to her, no heavy lifting, no m ore than 20 pounds. Follow up in my office in 1 week, call for appointment [phone] and she will be going home with antibiotics and pain medications. TREE/RUFINA Voice ID: [id number] Report ID: [id number]
--- NOTE | 2024-10-01 06:30 | P.DS ---
Admission Date: 09/30/24 Discharge Date: 09/30/24 Disposition: ROUTINE DISCHARGE Discharge Condition: GOOD Reason for Admission: Abdominal pain Consultations: General surgery - Dr. Nicholson Brief History of Present Illness: 68yo F, PMH: hypertension and hyperlipidemia. She presented to the ER complaining of an acute onset of right lower quadrant abdominal pain that started around 9 PM last night. Her symptoms have not let up since the onset. She has nausea and dry heaving. Denies vomiting. She also denies fever or chills or diarrhea. Workup in the ER revealed acute appendicitis. Patient has a WBC of more than 12,000. She is being admitted for appendectomy Hospital Course: Problem List: Acute appendicitis SERG, improved Hypertension Hyperlipidemia Hx Bilteral knee replacements Hx Breast cancer (2021) Joaquin Pierce presented to ER with abdominal pain, underwent CT of abdomen/pelvis which noted acute appendicitis. She was admitted and treated with IV fluids, pain medication, and antibiotics. Dr. Nicholson, general surgery, performed uncomplicated laparoscopic appendectomy. Discharged home with 1 week of Augmentin, pain medication, and Zofran for nausea if needed. Continue other home medications as previously prescribed Follow-up with Dr. Nicholson Keep surgical area dry for 48h then may remove outer dressing and shower. Then apply antibiotic ointment and bandaid. Physical Exam: GEN: Alert, NAD HEENT: Normal conjunctiva, sclera anicteric CV: Regular rate and rhythm, no edema Pulm: Nonlabored respirations on room air, clear bilaterally ABD: soft, nontender, dressing in place c/d/i Neuro: Normal speech, normal affect Vital Signs/Physical Exam: Temp Pulse Resp BP Pulse Ox 97.8 F 68 16 143/72 H 96 09/30/24 16:02 09/30/24 16:02 09/30/24 16:02 09/30/24 16:02 09/30/24 16:00 Laboratory Data at Discharge: WBC 12.40 thou/uL (4.3-10.9) H 09/30/24 01:52 Hgb 11.1 g/dL (12.0-15.0) L 09/30/24 01:52 Hct 34.3 % (36.0-45.0) L 09/30/24 01:52 Plt Count 279 thou/uL (152-406) 09/30/24 01:52 Sodium 141 mEq/L (136-145) 09/30/24 01:52 Potassium 3.6 mEq/L (3.5-5.1) 09/30/24 01:52 BUN 29 mg/dL (7-18) H 09/30/24 01:52 Creatinine 1.57 mg/dL (0.55-1.02) H 09/30/24 01:52 Glucose 121 mg/dL (74-106) H 09/30/24 01:52 Phosphorus Cancelled 09/30/24 14:00 Magnesium Cancelled 09/30/24 14:00 Total Bilirubin 0.3 mg/dL (0.2-1.0) 09/30/24 01:52 AST 18 U/L (15-37) 09/30/24 01:52 ALT 19 U/L (13-56) 09/30/24 01:52 Alkaline Phosphatase 93 U/L (45-117) 09/30/24 01:52 Lipase 51 U/L (13-75) 09/30/24 01:52 Home Medications: Olmesartan Medoxomil [Benicar] 40 mg PO [id number] 04/06/19 Amlodipine [Norvasc*] 5 mg PO DAILY 09/30/24 Amox/Clavulanate [Augmentin 875-125 Tab] 1 tab PO BID 7 Days #14 tab 09/30/24 Atorvastatin Calcium [Lipitor*] 20 mg PO DAILY 09/30/24 Furosemide [Lasix*] 20 mg PO DAILY 09/30/24 Hydrocodone 5/APAP 325 [Gans 5/325] 1 tab PO Q6H PRN #15 tab 09/30/24 Ondansetron [Ondansetron Odt] 4 mg PO Q8H PRN #10 tab 09/30/24 New Medications: Amox/Clavulanate [Augmentin 875-125 Tab] 1 tab PO BID 7 Days #14 tab Hydrocodone 5/APAP 325 [Gans 5/325] 1 tab PO Q6H PRN #15 tab PRN Reason: Pain Ondansetron [Ondansetron Odt] 4 mg PO Q8H PRN #10 tab PRN Reason: Nausea / Vomiting Physician Discharge Instructions: PROBLEM: Appendectomy GOAL: Clear understanding of disease process INSTRUCTIONS: Joaquin Pierce presented to ER with abdominal pain, underwent CT of abdomen/pelvis which noted acute appendicitis. She was admitted and treated with IV fluids, pain medication, and antibiotics. Dr. Nicholson, general surgery, performed uncomplicated laparoscopic appendectomy. Discharged home with 1 week of Augmentin, pain medication, and Zofran for nausea if needed. Continue other home medications as previously prescribed Follow-up with Dr. Nicholson Keep surgical area dry for 48h then may remove outer dressing and shower. Then apply antibiotic ointment and bandaid. Diet: Heart Healthy Activity: No lifting more than 10 lbs Take Medications as prescribed - sent to pharmacy Follow up with your Primary Physician in 1 week - if you need a PCP see list attached Follow up with Dr Nicholson in 1 week - call for appointment Return to ER for any emergency Call 2nd floor nurse's station for any questions about your stay [phone] Follow up with a Family Medicine Physician of your choice: JOHNATHAN MCNULTY MD [address] [facility] [address] [facility], [address] [place], [place] [id number] ACCEPTING NEW PATIENTS! EDUADRO CHO MD [address] [facility], [address] [place] [address] ACCEPTING NEW PATIENTS! CB-AMIRAH CHACKO, DO [address] [address] EDGAR MANUEL MD [address] [facility], [address] [place] [address] JOSE PALMER MD [address] [facility], [address] [place] [address] GLORIA QUINTERO MD [address] [facility], [place] [address] [place] [address] TIMMY FLORENTINO MD [address] [place] [address] SANDRA STORY [address], [address] [place] [address] SHANTELL GUZMAN MD [address] [facility], [address] [place], [place] [id number] NOEMI GUZMAN APRN [facility] [address], [address] [place], [place] [address] ALEJANDRODavid FLORES DO [address] [facility], [address] [place], [place] [id number] Diet: AHA Activity: No lifting more than 10 lbs Followup: Iam Nicholson MD [ACTIVE - CAN ADMIT] - 1 Week Jose Palmer MD [Primary Care Provider] - If your Symptoms Worsen Time spent managing pt's care (in minutes): 45
== END 2024-09-30 19:03 | disposition home or self-care (01) ==
LOC: ER 00:57 → ERHOLD 05:39 → 2ND 07:53
PROVIDERS: ADMIT Internal Medicine; ATTEND Hospitalist
PROC: 0DTJ4ZZ Resection of Appendix, Percutaneous Endoscopic Approach (ICD-10-PCS; principal; 2024-09-30 14:15)
DX: K35.80 Unspecified acute appendicitis (principal); N17.9 Acute kidney failure, unspecified; K52.9 Noninfective gastroenteritis and colitis, unspecified; K57.90 Diverticulosis of intestine, part unspecified, without perforation or abscess without bleeding; N28.1 Cyst of kidney, acquired; I10 Essential (primary) hypertension; E78.5 Hyperlipidemia, unspecified; Z98.84 Bariatric surgery status; Z85.3 Personal history of malignant neoplasm of breast; Z96.653 Presence of artificial knee joint, bilateral; Z79.899 Other long term (current) drug therapy
CPT/HCPCS: 87088; 85025; 81001; 87086; 36415; 83690; 80053; 74176; 94010; 44970; J3480; J2704; J1100; J2543 ×2; J2470; J2250; J3010; J2405 ×2; J7120; J7030 ×3; J0696; 88304